=== PATIENT | female | born 1975 | race Caucasian/White ===

== ENCOUNTER 2018-12-24 23:07 | Emergency (ER) | payer OTHER, SELFPAY ==
[2018-12-24 23:13] VITALS: BP 142/53; PULSE 76; RESP 18; TEMP 37; O2SAT 100
[2018-12-24] MEDS: diphenhydrAMINE 25 MG CAP PO (23:37)
[2018-12-24] MEDS: predniSONE 20 MG TAB 60 MG PO (23:37)
[2018-12-24] MEDS: Doxycycline Hyclate 100 MG CAP PO (23:38)
--- NOTE | 2018-12-24 23:39 | ED.GENADUL_ITS ---
Discharge Plan Disposition Patient Disposition: HOME Condition: Good Discharge Details Chief Complaint: Allergic Clinical Impression: Trigeminal neuralgia, Esquivel's palsy Primary Care Provider: Mikel Hurd ED Provider: Sung Boston Home Meds and New Rx's Prescriptions: New prednisone 50 MG tablet 50 mg PO DAILY Qty: 5 RF: 0 doxycycline hyclate 100 mg capsule 100 mg PO BID 28 Days Qty: 56 RF: 0 epinephrine 0.3 mg/0.3 mL auto-injector 0.3 mg IM ONCE Qty: 2 RF: 0 No Action desonide 0.05 % cream 1 applic TP BID PRN (Reason: eczema) Qty: 30 RF: 1 albuterol sulfate 90 mcg/actuation HFA aerosol inhaler 2 puff Inhalation QID PRN (Reason: bronchospasm) Qty: 18 RF: 11 Daily Gummies 200 mcg tablet,chewable See Patient Comments PO DAILY RF: 0 cetirizine 10 mg tablet 10 mg PO Q12H 30 Days Qty: 60 RF: 5 ranitidine HCl 150 mg capsule 150 mg PO BID Qty: 60 RF: 5 ibuprofen 600 MG tablet 600 mg PO TID Qty: 60 RF: 0 levonorgestrel-ethinyl estrad [Neida 28] 1 EACH tablet 1 tab-cap PO DAILY Qty: 3 RF: 3 naproxen sodium [Aleve] 220 MG capsule 220 mg PO PRN PRNRF: 0 Discharge Instructions Instructions: Esquivel Palsy (ED) Additional Instructions: Clinically it appears that you have Esquivel's palsy. Please take the steroid and antibiotic as directed until completion. Please take the Benadryl as needed. Please follow-up closely with your primary care provider. If you notice any worsening of your symptoms, or any new symptoms such as vomiting, diarrhea, fever, chills, shortness of breath, chest pain, numbness, weakness, or fainting , please return immediately to the emergency department for reevaluation. Please follow up with your primary care provider as soon as possible for reassessment and reevaluation. As always, it was a pleasure participating in your medical care today. Referrals: Mikel Hurd [Primary Care Provider] - Medical Decision Making This is a 43-year-old female who presents today for evaluation of what she describes as swelling in the right side of her face, in conjunction with mild numbness and tingling over her right cheek. She states that it is been present for the last few hours. Exam demonstrates no significant swelling whatsoever, no signs of angioedema. She does have subjective decrease in sensation over the right cheek, however she demonstrates normal smile, no significant facial droop, no other abnormality. No evidence of lesions, ulcers, or shingles. No clinical evidence of meningitis or encephalitis. Signs and symptoms at this time appear notably inconsistent with anaphylaxis, and there is certainly more concerning for mild early Esquivel's palsy or trigeminal neuralgia. I did review with the patient any recent tick bites or upper respiratory infections, and the patient and her admit to both. Roughly 1 week ago she was bitten by a tick on her right buttock. No rashes present. She also had a notable upper respiratory infection 48 hours ago. Exam demonstrates no other significant abnormalities. I am concerned that with a recent tick bite this may certainly be a component of her Esquivel's palsy or trigeminal neuralgia. This patient is notably concerned that she is having allergic reaction, with her history of other allergic reactions and her subjective swelling, I do feel that steroids and continued Benadryl at home is certainly reasonable this will also help with any significant Esquivel's palsy. We will give doxycycline for what I suspect to be potential Lyme oriented cause of her symptoms. They did discuss antivirals, but with no lesions, no signs of shingles, no recent cold sores or herpes, feel that we can hold off on this as she does have a clinical history otherwise suggestive of the doxycycline treatment. Patient agrees and would like to hold off on any antiviral medication at this time. She will be following up closely with her primary care provider. We discussed the importance of medication adherence, return for worsening of her symptoms, and the importance of close follow-up. Of note clinically the patient shows no neurologic deficits no signs or symptoms clinically evident of stroke at this time. I have extensively reviewed the treatment plan and discharge instructions with the patient and their family. I have addressed all patient concerns at this time. The patient and family was made aware of what symptoms to monitor for that would warrant a return to the emergency department. Discussed the plan with the patient and family, they demonstrate verbal understanding and agreement with our assessment and plan at this time. HPI General Date/Time Provider Initiated Documentation: 12/24/18 23:08 . HPI Narrative: This is a 43-year-old female with past medical history of multiple allergies, but no history of anaphylactic allergy, presents today with complaint of right lip and cheek numbness and swelling. Patient states that it is been present for the last 2 to 3 hours. She denies any history of swelling with her other allergic reactions. She denies any new foods, detergents, exposures, or other abnormalities. She denies any significant shortness of breath, vomiting, diarrhea, fever, chills, or other complaints. She has no other modifying factors at this time. She is not on any antibiotics currently, she does take a daily Zyrtec. She has not taken any Benadryl today. Of note on review she does state that she was bitten by a tick a week ago, and also complains of a mild URI-like symptoms at both she and her endured roughly 24 to 48 hours ago Related Data Home Medications Medication Instructions Recorded Confirmed ibuprofen 600 mg PO TID #60 tab-cap 09/09/14 11/12/18 naproxen sodium [Aleve] 220 mg PO PRN PRN 01/15/17 11/12/18 levonorgestrel-ethinyl estrad 1 tab-cap PO DAILY #3 pack 01/20/18 11/12/18 [[place]-28 Tablet] albuterol sulfate HFA 90 2 puff INHALATION QID PRN #18 gm 09/17/18 11/12/18 mcg/actuation aerosol inhaler desonide 0.05 % topical cream 1 applic TP BID PRN #30 gm 09/17/18 11/12/18 cetirizine 10 mg tablet 10 mg PO Q12H 30 Days #60 tab 11/12/18 11/12/18 multivitamin with minerals-folic See Rx Instructions PO DAILY tab 11/12/18 11/12/18 acid 200 mcg chewable tablet ranitidine 150 mg capsule 150 mg PO BID #60 cap 11/12/18 11/12/18 doxycycline hyclate 100 mg PO BID 28 Days #56 cap 12/24/18 epinephrine 0.3 mg IM ONCE #2 each 12/24/18 prednisone 50 mg PO DAILY #5 tab 12/24/18 Previous Rx's Medication Instructions Recorded levonorgestrel-ethinyl estrad 1 tab-cap PO DAILY #3 pack 01/20/18 [[place]-28 Tablet] albuterol sulfate HFA 90 2 puff INHALATION QID PRN #18 gm 09/17/18 mcg/actuation aerosol inhaler desonide 0.05 % topical cream 1 applic TP BID PRN #30 gm 09/17/18 cetirizine 10 mg tablet 10 mg PO Q12H 30 Days #60 tab 11/12/18 ranitidine 150 mg capsule 150 mg PO BID #60 cap 11/12/18 doxycycline hyclate 100 mg PO BID 28 Days #56 cap 12/24/18 epinephrine 0.3 mg IM ONCE #2 each 12/24/18 prednisone 50 mg PO DAILY #5 tab 12/24/18 Allergies Allergy/AdvReac Type Severity Reaction Status Date / Time Penicillins Allergy Intermediate RASH Verified 11/12/18 08:37 Sulfa (Sulfonamide Allergy Intermediate RASH Verified 11/12/18 08:37 Antibiotics) General Stated Complaint: Allergic ROSEY: 3 Review of Systems Review of Systems All systems reviewed & are unremarkable except as noted in HPI and below PFSH Family History Mother Essential hypertension Hyperlipidemia Adopted Father Essential hypertension Hyperlipidemia Sister Gestational diabetes mellitus Grandfather No problems noted. Grandmother Personal history of malignant neoplasm Son No problems noted. Social History Smoking/Tobacco Use Status: Never Alcohol Intake: never Drug use: Never Substance use type: does not use Do you feel safe at home: Yes Do you feel safe in your relationship?: Yes Exam Narrative Exam Narrative: 1.Const: Well-nourished, Well-developed, appearing stated age 2.Eyes: PERRL, no conjunctival injection, and symmetrical lids. 3.ENT: Atraumatic external nose and ears. Moist MM. Neck: Symmetric, trachea midline, No thyromegaly. No evidence of angioedema, no significant swelling on the side of her face. No facial droop 4.CVS: +S1/S2, No murmurs or gallops. Peripheral pulses 2+ and equal in all extremities. Brisk capillary refill in all extremities. 5.RESP: Unlabored respiratory effort. Clear to auscultation bilaterally. No wheezes rales or rhonchi 6.GI: Soft, Nontender/Nondistended, No hepatosplenomegaly. No guarding or rebound. 7.MSK: Normocephalic/Atraumatic, Extremities w/o deformity or ttp No cyanosis or clubbing, Normal movement of all extremities 8.Skin: Warm, Dry. No rashes or lesions. 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 Sensation grossly intact, no focal neurolog ic deficits. All 6 cardinal planes of vision are fully intact. No evidence of rotatory or vertical nystagmus. The patient demonstrated a normal [id number], good dexterity. There was no evidence of dysdiadochokinesia. Patient was able to ambulate without difficulty. There was no wide-based gait. Romberg, and kpme-wr-lwno are both normal on testing. Sensation was intact bilaterally as well as muscle strength bilaterally for all extremities. Patient was able to verbalize butter cup with no slurring, or miss pronunciation. 10.Psych: (AAO) x3. Appropriate mood and affect Course Vital Signs Temperature 37.0 C 12/24/18 23:13 Pulse 76 12/24/18 23:13 Respiratory Rate 18 12/24/18 23:13 Blood Pressure 142/53 H 12/24/18 23:13 Pulse Oximetry 100 12/24/18 23:13 Temperature 37.0 C 12/24/18 23:13 Pulse 76 12/24/18 23:13 Respiratory Rate 18 12/24/18 23:13 Respiratory Effort Non-Labored 12/24/18 23:21 Respiratory Pattern Normal 12/24/18 23:21 Blood Pressure 142/53 H 12/24/18 23:13 Blood Pressure Position Sitting 12/24/18 23:13 Pulse Oximetry 100 12/24/18 23:13 Oxygen Delivery Method Room Air 12/24/18 23:13 Oxygen Flow Rate 0 12/24/18 23:13
[2018-12-25 00:09] VITALS: BP 142/53; PULSE 76; RESP 18; O2SAT 100
== END 2018-12-25 00:09 | disposition home or self-care (01) ==
PROVIDERS: Emergency Provider Student in an Organized Health Care Education/Training Program; PCP Family Medicine
DX: G50.0 Trigeminal neuralgia (principal); G51.0 Bell's palsy
CPT/HCPCS: 99283; J7512

== ENCOUNTER 2019-01-01 08:10 | Outpatient (CLI) | payer OTHER, SELFPAY ==
[2019-01-01 09:28] LABS: Abs Immature Grans 0.02 k/cumm (0.0-0.09); Absolute Basophil Count 0.02 k/cumm (0.0-0.2); Absolute Eosinophil Count 0.28 k/cumm (0.0-0.7); Absolute Lymphocyte Count 2.16 k/cumm (1.2-3.4); Absolute Monocyte Count 0.34 k/cumm (0.11-0.7); Absolute Neutrophil Count 4.85 k/cumm (1.2-6.7); Basophils % 0.3; Eosinophils % 3.7; HCT 43.7 % (36.0-46.0); HGB 14.4 g/dL (12.0-15.5); Immature Grans % 0.3; Lymphocytes % 28.2; Mean Corpuscular Hemoglobin 30.5 pg (27.0-33.0); Mean Corpuscular Volume 92.6 fL (80-95); Mean Platelet Volume 9.9 fL (8.0-11.0); Monocytes % 4.4; Neutrophils % 63.1; Platelet Count 309 x1000/uL (130-400); RBC 4.72 m/cumm (4.00-5.20); RBC Distribution Width 13.2 % (11.7-14.6); White Blood Cell Count 7.67 k/cumm (4.4-10.8)
[2019-01-01 10:01] LABS: ALT 20 U/L (12-78); AST 13 U/L (15-37); Albumin 3.6 g/dL (3.4-5.0); Alkaline Phosphatase 57 U/L (46-116); Anion Gap 7.2 mmol/L (3-11); BUN 17 mg/dL (7-18); Bilirubin, Total 0.8 mg/dL (0.2-1.0); C-Reactive Protein 0.32 mg/dL (0.0-0.3); CO2 28.8 mmol/L (21.0-32.0); CREATININE 0.79 mg/dL (0.55-1.02); Calcium 8.9 mg/dL (8.5-10.1); Chloride 103 mmol/L (98-107); Glucose 86 mg/dL (70-100); Potassium 4.1 mmol/L (3.5-5.1); Sodium 139 mmol/L (136-145); TSH (W/Ref FT4) 3.68 uIU/mL (0.358-3.74); Total Protein 6.9 g/dL (6.4-8.2)
[2019-01-02 12:12] LABS: Lyme Ab w Rflx to Lyme Confirm Negative
== END 2019-01-01 08:30 ==
PROVIDERS: PCP Family Medicine; Visit Provider Family Medicine
DX: L50.8 Other urticaria (principal); G51.0 Bell's palsy
CPT/HCPCS: 36415; 80053; 84443; 85025; 86140; 86618

== ENCOUNTER 2019-02-06 16:26 | Outpatient (REF) | payer OTHER, SELFPAY ==
--- NOTE | 2019-02-06 15:50 | PAPFT_PTH ---
PATIENT: Hattie Espinoza LOC: [facility] U#:[id number] AGE/SX: 43/F ROOM: RE02/06/[address]: RORO Brady : 1975 BED: DIS: 02/06/2019 SPEC #: [id number] RECD: 02/06/19 17:12 STATUS: MARGUERITE REChetan #: [id number] SANIA: 02/06/19 15:[address]: Heather Funes DEPT: [facility] Cytology RECD BY: Aline Yates ENTERED: 02/06/19 17:12 SP TYPE: PAPFT OTHR DR: Mikel Hurd MD Tissues: 1 - CX/ENDOCX FOR PAP SMEARS Procedures: PAP THIN PREP/UVM Screening HPV DNA PROBE Comments: [id number]
== END 2019-02-06 16:46 ==
LOC: LBN 16:26
PROVIDERS: PCP Family Medicine; Visit Provider Nurse Practitioner Family
DX: Z12.4 Encounter for screening for malignant neoplasm of cervix (principal); Z11.51 Encounter for screening for human papillomavirus (HPV)
CPT/HCPCS: 88142; 87624

== ENCOUNTER 2019-05-11 01:16 | Outpatient (CLI) | payer OTHER, SELFPAY ==
--- NOTE | 2019-05-11 15:33 | DI.MAMMO_ITS ---
EXAM: MAMMO SCREENING CLINICAL HISTORY: screening Z12.31 TECHNIQUE: Mammograms were interpreted according to the usual protocol including computer analysis w [employer] CAD system, tomosynthesis and C-view imaging. COMPARISON: [id number] FINDINGS: The breasts are composed of scattered areas of fibroglandular densities, breast density category B. There are no suspicious masses or suspicious microcalcifications. There has been no significant newell e when compared with prior images. IMPRESSION: Category 1, negative mammogram. Routine yearly screening is recommended. BI-RADS Cat 1 - Negative Breast Density - Category B - Scattered areas of fibroglandular density
== END 2019-05-11 01:36 ==
PROVIDERS: PCP Family Medicine; Visit Provider Nurse Practitioner Family
DX: Z12.31 Encounter for screening mammogram for malignant neoplasm of breast (principal)
CPT/HCPCS: 77063; 77067

== ENCOUNTER 2020-02-16 14:49 | Outpatient (REF) | payer OTHER, SELFPAY ==
--- NOTE | 2020-02-16 14:30 | PAPFT_PTH ---
PATIENT: Hattie Espinoza LOC: [facility] U#:[id number] AGE/SX: 44/F ROOM: RE02/16/[address]: RORO Brady : 1975 BED: DIS: 02/16/2020 SPEC #: [id number] RECD: 02/16/20 18:08 STATUS: MARGUERITE REQ #: [id number] SANIA: 02/16/20 14:[address]: Heather Funes DEPT: [facility] Cytology RECD BY: Aline Yates ENTERED: 02/16/20 18:09 SP TYPE: PAPFT OTHR DR: Mikel Hurd MD Tissues: 1 - CX/ENDOCX FOR PAP SMEARS Procedures: PAP THIN PREP/UVM Screening HPV DNA PROBE Comments: [id number]
== END 2020-02-16 15:09 ==
LOC: LBN 14:49
PROVIDERS: PCP Family Medicine; Visit Provider Nurse Practitioner Family
DX: Z11.51 Encounter for screening for human papillomavirus (HPV) (principal)
CPT/HCPCS: 88142; 87624

== ENCOUNTER 2020-05-13 03:14 | Outpatient (CLI) | payer OTHER, SELFPAY ==
--- NOTE | 2020-05-13 15:30 | DI.MAMMO_ITS ---
EXAM: MAMMO SCREENING CLINICAL HISTORY: screening TECHNIQUE: Mammograms were interpreted according to the usual protocol including computer analysis w [employer] CAD system, tomosynthesis and C-view imaging. COMPARISON: 2014 through 2018 FINDINGS: The breasts are composed of scattered fibroglandular densities, Breast Density category B. No suspicious masses or suspicious microcalcifications are seen. No skin thickening or abnormal axillary lymph nodes are seen. There has been no significant change from prior exams. IMPRESSION: BI-RADS Category 1, Negative mammogram Yearly screening mammography is recommended. Breast Density - Category B, scattered fibroglandular densities. A negative radiographic report should not delay biopsy if a dominant or clinically suspicious mass is present. Up to ten percent of cancers are not identified on mammography. A negative report may reinforce clinical impression. Adenosis and dense breasts may obscure an underlying neoplasm. False positive reports average 6 to 10%. Patient will receive a letter notifying them of these results.
== END 2020-05-13 03:34 ==
PROVIDERS: PCP Family Medicine; Visit Provider Nurse Practitioner Family
DX: Z12.31 Encounter for screening mammogram for malignant neoplasm of breast (principal)
CPT/HCPCS: 77063; 77067

== ENCOUNTER 2021-02-24 16:26 | Outpatient (REF) | payer OTHER, SELFPAY ==
--- NOTE | 2021-02-24 15:45 | PAPFT_PTH ---
PATIENT: Hattie Espinoza LOC: [facility] U#:[id number] AGE/SX: 46/F ROOM: RE02/24/[address]: RORO Brady : 1975 BED: DIS: 02/24/2021 SPEC #: [id number] RECD: 02/24/21 17:01 STATUS: YAYOReyna REChetan #: [id number] SANIA: 02/24/21 15:[address]: Heather Funes DEPT: [facility] Cytology RECD BY: Cara Mcelroy ENTERED: 02/24/21 17:01 SP TYPE: PAPFT OTHR DR: Danny Nagy, [place] Tissues: 1 - CX/ENDOCX FOR PAP SMEARS Procedures: PAP THIN PREP/UVM Screening HPV DNA PROBE Comments: [id number]
== END 2021-02-24 16:27 | disposition home or self-care (01) ==
LOC: LBN 16:26
PROVIDERS: PCP Nurse Practitioner Family; Visit Provider Nurse Practitioner Family
DX: Z12.4 Encounter for screening for malignant neoplasm of cervix (principal); Z11.59 Encounter for screening for other viral diseases; Z87.410 Personal history of cervical dysplasia
CPT/HCPCS: 88142; 87624

== ENCOUNTER 2021-08-14 01:55 | Outpatient (CLI) | payer OTHER, SELFPAY ==
--- NOTE | 2021-08-14 08:15 | DI.MAMMO_ITS ---
Exam(s) MAMMO SCREENING EXAM: MAMMO SCREENING CLINICAL HISTORY: screening,z12.39 TECHNIQUE: Bilateral full field digital CC and MLO mammographic images were obtained with 3D tomosyn thesis and utilizing computer aided detection (CAD). COMPARISON: Available for comparison. FINDINGS: Masses/Architectural Distortion: None seen. Microcalcifications: No suspicious pleomorphic-type are seen. Skin Thickening/Nipple Retraction: None. IMPRESSION: 1. No significant interval change with no specific features of malignancy noted. 2. Unless there is more urgent need, screening mammography is recommended, as per [employer] guidelines. BI-RADS Category 1 - Negative Breast Density - Category B - Scattered areas of fibroglandular density Breast density category C or D implies that the patient has dense breast tissue. Dense breast tissue is very common and is not abnormal but dense breast tissue can make it harder to find cancer on a ma mmogram. Also, dense breast tissue may increase their breast cancer risk. This information about the result of the mammogram report was provided to the patient to raise their awareness. Use this report when you speak with the patient about their risks for breast cancer, which includes their family hist ory. At that time, you may recommend for more screening tests (Ultrasound or MRI) as they might be us eful based on their risk. A negative radiographic report should not delay biopsy if a dominant or clinically suspicious mass is present. Up to ten percent of cancers are not identified on mammography. A negative report may reinforce clinical impression. Adenosis and dense breasts may obscure an underlying neoplasm. False positive reports average 6 to 10%. Patient will receive a letter notifying them of these results.
== END 2021-08-14 02:15 ==
PROVIDERS: PCP Nurse Practitioner Family; Visit Provider Nurse Practitioner Family
DX: Z12.31 Encounter for screening mammogram for malignant neoplasm of breast (principal)
CPT/HCPCS: 77063; 77067

== ENCOUNTER 2021-10-13 03:38 | Outpatient (CLI) | payer OTHER, SELFPAY ==
[2021-10-13 08:12] LABS: Hemoglobin A1C 5.8 % (<5.7)
[2021-10-13 08:47] LABS: Calculated LDL 132 mg/dL (<100); Cholesterol 194 mg/dL (<200); HDL Cholesterol 49 mg/dL (40-60); TSH 6.87 uIU/mL (0.36-3.74); Triglyceride 65 mg/dL (<150)
== END 2021-10-13 03:39 | disposition home or self-care (01) ==
LOC: LBO 03:38
PROVIDERS: PCP Nurse Practitioner Family; Visit Provider Nurse Practitioner Family
DX: Z13.220 Encounter for screening for lipoid disorders (principal); Z13.1 Encounter for screening for diabetes mellitus; Z13.29 Encounter for screening for other suspected endocrine disorder
CPT/HCPCS: 36415; 80061; 83036; 84443

== ENCOUNTER 2022-04-26 14:10 | Outpatient (REF) | payer OTHER, SELFPAY ==
--- NOTE | 2022-04-26 13:40 | PAPFT_PTH ---
PATIENT: Hattie Espinoza LOC: [facility] U#:[id number] AGE/SX: 47/F ROOM: RE04/26/[address]: Bharti Leung MD : 1975 BED: DIS: 04/26/2022 SPEC #: [id number] RECD: 04/26/22 17:31 STATUS: YAYOReyna REQ #: [id number] SANIA: 04/26/22 13:[address]: Bharti Leung DEPT: [facility] Cytology RECD BY: Aline Yates ENTERED: 04/26/22 17:31 SP TYPE: PAPFT OT DR: Danny Nagy, [place] Tissues: 1 - CX/ENDOCX FOR PAP SMEARS Procedures: PAP THIN PREP/UVM Screening HPV DNA PROBE Comments: [id number]
== END 2022-04-26 14:11 | disposition home or self-care (01) ==
LOC: LBN 14:10
PROVIDERS: PCP Nurse Practitioner Family; Visit Provider Obstetrics & Gynecology
DX: Z12.4 Encounter for screening for malignant neoplasm of cervix (principal); Z11.51 Encounter for screening for human papillomavirus (HPV)
CPT/HCPCS: 88142; 87624

== ENCOUNTER → 2023-04-15 18:55 | Outpatient (CLI) | payer OTHER, SELFPAY ==
--- NOTE | 2023-04-15 | DI.RAD_ITS ---
Exam(s) XR FOOT LT COMPLETE EXAM: XR FOOT LT COMPLETE CLINICAL HISTORY: PAIN IN LT FOOT, M79.672. TECHNIQUE: 2D digital imaging was performed. COMPARISON: No exams were available for comparison FINDINGS: 3 views No evidence of acute fracture nor diastasis of the Lisfranc joint. Bone density normal. No osseous lesions. No radiopaque foreign body. IMPRESSION: No acute osseous findings in the foot. DATA REPOSITORY: RADIATION DOSE DELIVERED:
== END ==
PROVIDERS: PCP Nurse Practitioner Family; Visit Provider Nurse Practitioner Family
DX: M79.672 Pain in left foot (principal)
CPT/HCPCS: 73630

== ENCOUNTER 2023-09-25 12:42 | Outpatient (REF) | payer OTHER, SELFPAY ==
--- NOTE | 2023-09-25 12:00 | PAPFT_PTH ---
PATIENT: Hattie Espinoza LOC: [facility] U#:[id number] AGE/SX: 48/F ROOM: RE09/25/[address]: Bharti Leung MD : 1975 BED: DIS: 09/25/2023 SPEC #: [id number] RECD: 09/25/23 18:31 STATUS: MARGUERITE REChetan #: [id number] SANIA: 09/25/23 12:[address]: Bharti Leung DEPT: [facility] Cytology RECD BY: Aline Yates ENTERED: 09/25/23 18:31 SP TYPE: PAPFT LUIS ALBERTO DR: Danny Nagy, [place] Tissues: 1 - CX/ENDOCX FOR PAP SMEARS Procedures: PAP THIN PREP/UVM Screening HPV DNA PROBE Comments: [id number]
== END 2023-09-25 12:43 | disposition home or self-care (01) ==
LOC: LBN 12:42
PROVIDERS: PCP Nurse Practitioner Family; Visit Provider Obstetrics & Gynecology
DX: Z12.4 Encounter for screening for malignant neoplasm of cervix (principal); R87.610 Atypical squamous cells of undetermined significance on cytologic smear of cervix (ASC-US); Z11.51 Encounter for screening for human papillomavirus (HPV)
CPT/HCPCS: 88142; 87624

== ENCOUNTER → 2023-10-04 01:25 | Outpatient (CLI) | payer OTHER, SELFPAY ==
--- NOTE | 2023-10-04 15:15 | DI.MAMMO_ITS ---
Exam(s) MAMMO SCREENING EXAM: MAMMO SCREENING CLINICAL HISTORY: screening TECHNIQUE: Mammograms were interpreted according to the usual protocol including computer analysis w [employer] CAD system, tomosynthesis and C-view imaging. COMPARISON: 2014 through 2021 FINDINGS: The breasts are composed of mainly fatty density , Breast Density category A. No suspicious masses or suspicious microcalcifications are seen. No skin thickening or abnormal axillary lymph nodes are seen. There has been no significant change from prior exams. IMPRESSION: BI-RADS Category 1, Negative mammogram Yearly screening mammography is recommended. Breast Density - Category A, fatty density. A negative radiographic report should not delay biopsy if a dominant or clinically suspicious mass is present. Up to ten percent of cancers are not identified on mammography. A negative report may reinforce clinical impression. Adenosis and dense breasts may obscure an underlying neoplasm. False positive reports average 6 to 10%. Patient will receive a letter notifying them of these results.
== END ==
PROVIDERS: PCP Nurse Practitioner Family; Visit Provider Obstetrics & Gynecology
DX: Z12.31 Encounter for screening mammogram for malignant neoplasm of breast (principal)
CPT/HCPCS: 77063; 77067

== ENCOUNTER 2023-11-11 02:52 | Emergency (ER) | payer OTHER, SELFPAY ==
[2023-11-11 02:56] VITALS: BP 174/83; PULSE 79; RESP 18; TEMP 36.4; O2SAT 98
--- NOTE | 2023-11-11 03:00 | DI.CT_ITS ---
Exam(s) CT ABDOMEN PELVIS WO EXAM: CT ABDOMEN PELVIS WO CLINICAL HISTORY: suprapubic pain, hematuria, concern for stone. TECHNIQUE: Imaging Protocol: Axial computed tomography images with coronal and sagittal reformatted images were created and reviewed. COMPARISON: No exams were available for comparison FINDINGS: ABDOMEN: Lung Bases: Normal where visualized. Liver: Normal density. There is a 1.2 cm area of decreased attenuation in the periphery of the right lobe of the liver (series 5, image 65). This is indeterminate on this noncontrast examination. Gallbladder and biliary tract: No radiodense calculus or biliary ductal dilation. Pancreas: Normal density, no abnormal calcifications or inflammatory process. Spleen: Normal. Kidneys: Normal size, contour and axis.No radiodense stones or obstructive uropathy. No masses seen. Adrenal glands: No mass is seen. Lymph nodes: Within normal limits. Abdominal Aorta: Abdominal portion non-dilated. PELVIS: Bladder:The urinary bladder is incompletely distended but grossly unremarkable. Bowel: No obstruction or bowel wall thickening. No evidence of appendicitis. Peritoneal cavity: There is a trace amount of free fluid in the cul-de-sac which is likely physiologi c. No free air. Reproductive organs: There is a 3 cm left ovarian cyst. (Series 5, image 582). Bones: Within normal limits. Soft Tissues: There is a small fat containing umbilical hernia. IMPRESSION: 1. Unremarkable CT scan of the abdomen and pelvis. 2. No evidence of nephrolithiasis or hydronephrosis. 3. 3 cm left ovarian cyst. 4. 1.2 cm area of decreased attenuation in the periphery of the right lobe of the liver. This is ind eterminate on this noncontrast examination. Follow-up with postcontrast CT scan of the abdomen or MR I of the abdomen without and with contrast is recommended. Unexpected findings RADIATION DOSE DELIVERED: 998.93mGy.cm Total DLP DATA REPOSITORY: All CT scans at this facility are submitted to the National Radiology Data Registry (NRDR) Dose Index Registry (DIR) with the [employer] (A[employer]). RADIATION OPTIMIZATION: All CT scans at this facility use at least one of these dose optimization te chniques: automated exposure control; mA and/or kV adjustment per patient size (includes targeted exa ms where dose is matched to clinical indication); or iterative reconstruction.
[2023-11-11 03:04] LABS: Bilirubin Small (Negative); Blood Large (Negative); Clarity Cloudy (Clear); Glucose Negative (Negative); Ketones Trace mg/dL (Negative); Leukocyte Esterase Small (Negative); Nitrite Positive (Negative); Specific Gravity >= 1.030 (1.005-1.025); pH 5.5 (5-8)
[2023-11-11 03:08] VITALS: BP 171/83; PULSE 81; RESP 22; TEMP 36.4; O2SAT 98
[2023-11-11] MEDS: Tamsulosin 0.4 MG CAPCR PO (03:10)
[2023-11-11] MEDS: Lactated Ringers 1,000 ML 1000 ML IV (03:11)
[2023-11-11 03:12] LABS: C & S Indicated? Yes; RBC >50 HPF (0-2)
[2023-11-11] MEDS: Ondansetron 4 MG/2 ML VIAL IVP (03:12)
[2023-11-11] MEDS: Ketorolac 15 MG/ML VIAL IVP (03:12)
[2023-11-11] MEDS: ACETAMINOPHEN 1,000 MG/100 ML BTL 400 MG IVPB (03:12)
[2023-11-11 03:28] LABS: Abs Immature Grans 0.02 10^3/uL (0.0-0.06); Absolute Basophil Count 0.05 10^3/uL (0.0-0.2); Absolute Eosinophil Count 0.65 10^3/uL (0.0-0.7); Absolute Lymphocyte Count 2.77 10^3/uL (1.2-3.4); Absolute Neutrophil Count 4.53 10^3/uL (1.2-6.7); Basophils % 0.6; Eosinophils % 7.6; HCT 39.7 % (36.0-46.0); HGB 13.2 g/dL (11.2-15.7); Immature Grans % 0.2; Lymphocytes % 32.5; MCH 30.5 pg (27.0-33.0); MCHC 33.2 % (32.0-36.0); MCV 92 fL (80-95); MPV 9.5 fL (8.0-11.0); Monocytes % 5.9; Neutrophils % 53.2; Platelet Count 311 10^3/uL (130-400); RBC 4.33 10^6/uL (3.93-5.22); RDW 12.6 % (11.7-14.6); RDW-SD 42.6 fL; WBC 8.52 10^3/uL (4.4-10.8)
[2023-11-11 03:44] LABS: ALT 40 U/L (14-59); AST 24 U/L (15-37); Albumin 3.8 g/dL (3.4-5.0); Alkaline Phosphatase 99 U/L (46-116); Anion Gap 9.8 mmol/L (3-11); BUN 12 mg/dL (7-18); Bilirubin, Total 0.6 mg/dL (0.2-1.0); CO2 28.2 mmol/L (21.0-32.0); CREATININE 0.9 mg/dL (0.55-1.02); Calcium 8.6 mg/dL (8.5-10.1); Chloride 103 mmol/L (98-107); Estimated GFR 78.37 (mL/min/1.73m2); Glucose 104 mg/dL (74-106); Potassium 3.5 mmol/L (3.5-5.1); Sodium 141 mmol/L (136-145); Total Protein 7.3 g/dL (6.4-8.2)
--- NOTE | 2023-11-11 03:45 | W.ED.GENAD ---
Discharge Plan Disposition Patient Disposition: Home Condition: Good Discharge Details Clinical Impression: UTI (urinary tract infection) Primary Care Provider: Danny Nagy ED Provider: Sung Boston Home Meds and New Rx's Prescriptions: New levofloxacin 750 mg tablet 750 mg PO DAILY Qty: 5 0RF No Action nystatin-triamcinolone 100,000-0.1 unit/g-% cream 1 applic Topical BID PRN Rx Instructions: local application in thin layer twice a day on rash, until rash is gone levonorgestrel-ethinyl estrad [[place]sco 28] 0.15-0.03 mg tablet 1 tab PO DAILY Qty: 84 4RF albuterol sulfate 90 mcg/actuation HFA aerosol inhaler 2 puff Inhalation QID PRN (Reason: bronchospasm) Qty: 18 11RF multivit with min-folic acid [Daily Gummies] 200 mcg tablet,chewable See Rx Instructions PO DAILY Patient Comments: 2 tab PO ; DAILY Rx Instructions: 2 tab PO ; DAILY fluocinonide 0.1 % cream 1 applic topical BID-QID PRN (Reason: rash) Qty: 120 2RF desonide 0.05 % cream 1 applic TP BID PRN (Reason: eczema) Qty: 60 1RF valacyclovir 1 gram tablet 1,000 mg PO TID Qty: 21 0RF Rx Instructions: Take 1 tablet by mouth three times a day for 7 days Discharge Instructions Instructions: Urinary Tract Infection in Women (ED) Additional Instructions: At this time you have a urinary tract infection, please take the antibiotic levofloxacin as directed. As we discussed together this can cause tendon irritation. Please avoid any aggressive or intense workouts there is significant ligamentous straining while on the antibiotic. If you do notice any pain in your ligaments please stop the antibiotic and follow-up immediately. Please drink plenty of fluids and stay well-hydrated. Please take cranberry concentrate to help with resolution of your symptoms. If you notice any worsening of your symptoms, or any new symptoms such as vomiting, diarrhea, fever, chills, shortness of breath, chest pain, numbness, weakness, or fainting , please return immediately to the emergency department for reevaluation. Please follow up with your primary care provider as soon as possible for reassessment and reevaluation. As always, it was a pleasure participating in your medical care today. Referrals: Danny Nagy NP [Primary Care Provider] - [facility] General Date/Time Provider Initiated Documentation: 11/11/23 02:53. HPI Narrative: 48-year-old female presents today for evaluation of urinary discomfort. Patient states that at around 8:30 PM she had sudden onset of urinary frequency and dysuria which she describes as sharp and stabbing the ureteral region. She had some associated nausea but no vomiting. No flank pain or tenderness. No diarrhea. No vaginal discharge. She has not taken any medications for the pain. Pain worsened throughout the night. It is constant in nature. Family history is positive for kidney stones for her son and mother. She denies personal history of kidney stone. No other complaints at this time. No fever or chills. No other modifying factors. Patient does state that she has had similar symptoms like this but not to this degree in the past, and they were secondary to urinary tract infection. Related Data Home Medications Medication Instructions Recorded Confirmed albuterol sulfate 90 mcg/actuation 2 puff inhalation QID PRN 09/17/18 11/11/23 aerosol inhaler bronchospasm #18 grams multivitamin with minerals-folic See Rx Instructions PO DAILY daily 11/12/18 11/11/23 acid 200 mcg chewable tablet (Daily Gummies) fluocinonide 0.1 % topical cream 1 applic topical BID-QID PRN rash 09/29/21 11/11/23 #120 grams desonide 0.05 % topical cream 1 applic topical BID PRN eczema 02/21/22 11/11/23 #60 grams nystatin-triamcinolone 100,000 1 applic topical BID PRN 04/26/22 11/11/23 unit/g-0.1 % topical cream valacyclovir 1 gram tablet 1,000 mg PO TID #21 tabs 06/24/23 11/11/23 levonorgestrel 0.15 mg-ethinyl 1 tab PO DAILY #84 tabs 09/25/23 11/11/23 estradiol 0.03 mg tablet (Osco 28) levofloxacin 750 mg tablet 750 mg PO DAILY #5 tabs 11/11/23 Previous Rx's Medication Instructions Recorded albuterol sulfate 90 mcg/actuation 2 puff inhalation QID PRN 09/17/18 aerosol inhaler bronchospasm #18 grams fluocinonide 0.1 % topical cream 1 applic topical BID-QID PRN rash 09/29/21 #120 grams desonide 0.05 % topical cream 1 applic topical BID PRN eczema 02/21/22 #60 grams valacyclovir 1 gram tablet 1,000 mg PO TID #21 tabs 06/24/23 levonorgestrel 0.15 mg-ethinyl 1 tab PO DAILY #84 tabs 09/25/23 estradiol 0.03 mg tablet (Neida 28) levofloxacin 750 mg tablet 750 mg PO DAILY #5 tabs 11/11/23 Allergies Allergy/AdvReac Type Severity Reaction Status Date / Time Penicillins Allergy Intermediate RASH Verified 09/25/23 11:01 Sulfa (Sulfonamide Allergy Intermediate RASH Verified 09/25/23 11:01 Antibiotics) heat sweat Allergy Intermediate hives Uncoded 09/25/23 11:01 General Stated Complaint: Urinary ROSEY: 3 Review of Systems All systems reviewed & are unremarkable except as noted in HPI and below Exam Narrative Exam Narrative: 1.Const: Well-nourished, Well-developed, appearing stated age 2.Eyes: PERRL, no conjunctival injection, and symmetrical lids. 3.ENT: Atraumatic external nose and ears. Moist MM. Neck: Symmetric, trachea midline, No thyromegaly. 4.CVS: +S1/S2, No murmurs or gallops. Peripheral pulses 2+ and equal in all extremities. Brisk capillary refill in all extremities. 5.RESP: Unlabored respiratory effort. Clear to auscultation bilaterally. No wheezes rales or rhonchi 6.GI: Soft, Nontender/Nondistended, No hepatosplenomegaly. No guarding or rebound. No flank or CVA tenderness 7.MSK: Normocephalic/Atraumatic, Extremities w/o deformity or ttp No cyanosis or clubbing, Normal movement of all extremities 8.Skin: Warm, Dry. No rashes or lesions. 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 Sensation grossly intact, no focal neurologic deficits. 10.Psych: (AAO) x3. Appropriate mood and affect Course Vital Signs Vital signs: Vital Signs Temperature 36.4 C 11/11/23 02:56 Pulse 79 11/11/23 02:56 Respiratory Rate 18 11/11/23 02:56 Blood Pressure 174/83 H 11/11/23 02:56 Pulse Oximetry 98 11/11/23 02:56 Temperature 36.4 C L 11/11/23 03:08 Temperature Source Temporal Artery Scan 11/11/23 03:08 Pulse 81 11/11/23 03:08 Respiratory Rate 22 11/11/23 03:08 Respiratory Effort Normal, Non-Labored 11/11/23 03:08 Blood Pressure 171/83 H 11/11/23 03:08 Blood Pressure Position Sitting 11/11/23 03:08 Pulse Oximetry 98 11/11/23 03:08 Oxygen Delivery Method Room Air 11/11/23 03:08 Oxygen Flow Rate 0 11/11/23 02:56 Pain Level 7 11/11/23 03:08 Lab/Test Results Lab/Test Results: 11/11/23 03:00 Urine - Reflex from Ua Urine Culture - Pending Laboratory Tests Range/Units 11/11/23 11/11/23 03:00 03:15 WBC (4.4-10.8) 10^3/uL 8.52 RBC (3.93-5.22) 10^6/uL 4.33 Hgb (11.2-15.7) g/dL 13.2 Hct (36.0-46.0) % 39.7 MCV (80-95) fL 92 MCH (27.0-33.0) pg 30.5 MCHC (32.0-36.0) % 33.2 RDW (11.7-14.6) % 12.6 Plt Count (130-400) 10^3/uL 311 MPV (8.0-11.0) fL 9.5 Immature Gran % 0.2 Neutrophils % 53.2 Lymphocytes % 32.5 Monocytes % 5.9 Eosinophils % 7.6 Basophils % 0.6 Nucleated RBC % (0.0-0.3) % 0.0 Absolute Neutrophils (1.2-6.7) 10^3/uL 4.53 Absolute Lymphocytes (1.2-3.4) 10^3/uL 2.77 Absolute Monocytes (0.1-0.8) 10^3/uL 0.50 Absolute Eosinophils (0.0-0.7) 10^3/uL 0.65 Absolute Basophils (0.0-0.2) 10^3/uL 0.05 Urine Color (Yellow) Yellow Urine Clarity (Clear) Cloudy Urine pH (5-8) 5.5 Ur Specific [place] (1.005-1.025) >= 1.030 H Urine Protein (Neg-Trace) mg/dL >=300 H Urine Ketones (Negative) mg/dL Trace H Urine Blood (Negative) Large H Urine Nitrite (Negative) Positive H Urine Bilirubin (Negative) Small H Urine Urobilinogen (Up to 0.2) mg/dL 1.0 H Ur Leukocyte Esterase (Negative) Small H Urine RBC (0-2) HPF >50 H Urine WBC Not Applicable Ur Epithelial Cells Not Applicable Urine Crystals Not Applicable Urine Bacteria Not Applicable Urine Mucus Not Applicable Ur Culture Indicated? Yes Urine Glucose (Negative) mg/dL Negative Medical Decision Making 48-year-old female presents today for evaluation of urinary discomfort. Patient states that at around 8:30 PM she had sudden onset of urinary frequency and dysuria which she describes as sharp and stabbing the ureteral region. She had some associated nausea but no vomiting. No flank pain or tenderness. No diarrhea. No vaginal discharge. She has not taken any medications for the pain. Pain worsened throughout the night. It is constant in nature. Family history is positive for kidney stones for her son and mother. She denies personal history of kidney stone. No other complaints at this time. No fever or chills. No other modifying factors. Patient does state that she has had similar symptoms like this but not to this degree in the past, and they were secondary to urinary tract infection. Physical exam demonstrates well-appearing female who is in mild to moderate pain. No pain to McBurney's point, negative Aguilar sign. Symptoms are concerning for urinary tract infection and potential pyelonephritis, differential also includes urolithiasis with infection. Will get a CT scan to rule out stone, get a urinalysis treat the patient's pain with Toradol and Ofirmev, Flomax, monitor closely and reassess. 3:49 AM Laboratory workup shows no white count bandemia or left shift, electrolytes are all normal, urinalysis shows nitrates, leuk esterase, greater than 50 RBCs unable to see WBCs. Concern for hemorrhagic cystitis secondary to infection. Will give 750 mg of Levaquin. Pending CT scan results, however upon my review I do not see any evidence of stone. Notably thickened urinary bladder though. 4:24 AM Laboratory workup has returned normal, no white count bandemia or left shift. Patient remains afebrile. Patient feels much better after medication. CT scan shows no evidence of urolithiasis. She does have a left ovarian cyst which is only 3 cm. Symptoms appear inconsistent clinically with ovarian torsion or ectopic . With the patient's resolution of her pain, I do feel that treatment on an outpatient basis is reasonable. Patient does have penicillin allergies. She has utilized Cipro in the past for treatment. Will treat with levofloxacin due to the notable enhanced nature of the urinary tract infection this time. I had a long discussion with her about the risks and benefits of fluoroquinolones, including tendon damage. I discussed the importance of avoidance of aggressive exercising. Patient consents to treatment. Patient will be given a dose here, and then a prescription for home. Discussed red flags for which to return. I have extensively reviewed the treatment plan and discharge instructions with the patient. I have addressed all patient concerns at this time. The patient was made aware of what symptoms to monitor for that would warrant a return to the emergency department. Discussed the plan with the patient, they demonstrate verbal understanding and agreement with our assessment and plan at this time. The documentation in this chart was dictated using [employer] dictation software. Please excuse any dictation errors. FINDINGS: Lungs: Lung bases clear. Liver: Grossly unremarkable unenhanced liver. Gallbladder and bile ducts: Normal appearing gallbladder. No calcified gallstones. No biliary dilatation. Pancreas: Grossly unremarkable unenhanced pancreas. Spleen: Grossly unremarkable unenhanced spleen. Adrenal glands: Normal appearing adrenal glands. Kidneys and ureters: Grossly unremarkable unenhanced kidneys. No radiopaque renal calculi or hydronephrosis. Ureters partially obscured. No suspicious calcifications along the expected ureteral courses. Stomach and bowel: No oral contrast. Stomach largely decompressed. No small bowel dilatation to suggest obstruction. Normal-appearing colon. No evidence of diverticulitis or colitis. Appendix: Appendix partially obscured but normal in caliber and appearance through its visualized portion. Intraperitoneal space: Small amount of free fluid in the deep pelvis, nonspecific. No free air. Vasculature: Normal caliber abdominal aorta. Lymph nodes: No pathologically enlarged mesenteric, retroperitoneal, or pelvic sidewall lymph nodes. Urinary bladder: Urinary bladder partially collapsed but grossly unremarkable, as seen. Reproductive: Anteverted uterus, normal in size. Normal-sized right ovary. Left ovary partially obscured. 3.0 cm x 2.2 cm dominant left ovarian follicle, partially obscured by artifact and not well demonstrated. Bones/joints: No acute fracture seen among the bones of the abdomen or pelvis. Soft tissues: Small fat containing ventral hernia at the umbilicus. IMPRESSION: 1. 3.0 cm x 2.2 cm enlarged left ovarian follicle with fluid in the left adnexal region and cul-de-sac of John. 2. No radiopaque renal calculi, hydronephrosis, or proximal ureterectasis. Ureters partially obscured. No suspicious calcifications along the expected ureteral courses. Thank you for allowing us to participate in the care of your patient. Dictated and Authenticated by: Mario Nicolas MD 11/11/2023 4:18 AM Eastern Time ([place] & [place]) Quality:SDOH Health Related Social Needs: No Data to Display PFSH All Active Problems (Updated 11/11/23 @ 04:22 by Sung Boston DO) UTI (urinary tract infection) (Acute) Rectal bleeding (Acute) Benign paroxysmal positional vertigo (Acute) Heart murmur (Acute) normal echo 2001 Medical History Personal history of cervical dysplasia SHILPI 2/3 with LEEP in 2012 Normal yearly paps since Left lateral epicondylitis Eczema Herpes zoster (2019) Environmental allergies Asthma intermittent Cellulitis of leg (11/05/12) Chronic rhinitis (04/01/17) Closed fracture of lower leg Fibrocystic disease of breast (11/05/12) Hemorrhoid prolapse (04/18/17) Surgical History Status post LEEP (loop electrosurgical excision procedure) of cervix Cervical Procedure (11/12/12) LEEP; HGSIL Family History Mother Essential hypertension Hyperlipidemia Adopted Father Essential hypertension Hyperlipidemia Sister Gestational diabetes mellitus Grandfather , BLOOD CLOT IN HEART at age 67. No problems noted. Grandmother Personal history of malignant neoplasm BONE Son No problems noted. Social History Smoking/Tobacco Use Status: Never Second Hand Exposure: Yes Smoking risk assessment performed?: Yes Alcohol Intake: current Alcohol Intake frequency: holidays/special occasions only Alcohol type: hard liquor Drug use: Never Substance use type: does not use Household members: spouse Housing: house Communication Needs: None Do you need help understanding health information?: Never Pets and animals: No Sexually active: Yes Do you think of yourself as: straight/heterosexual Current gender identity: female What is your relationship status?: How often do you talk on the phone with friends or family?: twice per week How often do you get together with friends or relatives?: once per week Do you belong to any clubs or organized social groups?: no Panel score (0-1 are the most socially isolated patients): 2 What type of physical activity do you participate in: aerobic and weight lifting Sera/Tenriism: Advent Seatbelt use: always Helmet use: Yes Helmet use: always Drive intox or ride w/intox skidder driver: No Do you feel safe at home: Yes Do you feel safe in your relationship?: Yes History History 3 Para 1 Hx # Term Pregnancies 1 Multiple births Hx # Pregnancies Ectopic pregnancies AB induced Hx Number of Living Children 1 AB spontaneous 2 Past Pregnancies Del. Date GA/Weeks # Preg Succ Route Wgt Sex Labor Lgth Anesthesia Location [facility] Compl 05/28/95 38 No Yes vaginal 2834.[facility] Date[facility] 05/28/95 Last Updated by: Jo Baptiste Baby inpatient for 5 days for not eating well/ weight loss.
[2023-11-11] MEDS: levoFLOXacin 750 MG/150 ML BAG 100 MG IVPB (04:00)
--- NOTE | 2023-11-11 04:18 | DI.VRAD_ITS ---
PROCEDURE INFORMATION: Exam: CT Abdomen And Pelvis Without Contrast Exam date and time: 11/11/2023 3:10 AM Age: 48 years old Clinical indication: Abdominal pain; Patient HX: Suprapubic pain, hematuria, concern for stone TECHNIQUE: Imaging protocol: Computed tomography of the abdomen and pelvis without contrast. Radiation optimization: All CT scans at this facility use at least one of these dose optimization techniques: automated exposure control; mA and/or kV adjustment per patient size (includes targeted exams where dose is matched to clinical indication); or iterative reconstruction. COMPARISON: No relevant prior studies available. FINDINGS: Lungs: Lung bases clear. Liver: Grossly unremarkable unenhanced liver. Gallbladder and bile ducts: Normal appearing gallbladder. No calcified gallstones. No biliary dilatation. Pancreas: Grossly unremarkable unenhanced pancreas. Spleen: Grossly unremarkable unenhanced spleen. Adrenal glands: Normal appearing adrenal glands. Kidneys and ureters: Grossly unremarkable unenhanced kidneys. No radiopaque renal calculi or hydronephrosis. Ureters partially obscured. No suspicious calcifications along the expected ureteral courses. Stomach and bowel: No oral contrast. Stomach largely decompressed. No small bowel dilatation to suggest obstruction. Normal-appearing colon. No evidence of diverticulitis or colitis. Appendix: Appendix partially obscured but normal in caliber and appearance through its visualized portion. Intraperitoneal space: Small amount of free fluid in the deep pelvis, nonspecific. No free air. Vasculature: Normal caliber abdominal aorta. Lymph nodes: No pathologically enlarged mesenteric, retroperitoneal, or pelvic sidewall lymph nodes. Urinary bladder: Urinary bladder partially collapsed but grossly unremarkable, as seen. Reproductive: Anteverted uterus, normal in size. Normal-sized right ovary. Left ovary partially obscured. 3.0 cm x 2.2 cm dominant left ovarian follicle, partially obscured by artifact and not well demonstrated. Bones/joints: No acute fracture seen among the bones of the abdomen or pelvis. Soft tissues: Small fat containing ventral hernia at the umbilicus. IMPRESSION: 1. 3.0 cm x 2.2 cm enlarged left ovarian follicle with fluid in the left adnexal region and cul-de-sac of John. 2. No radiopaque renal calculi, hydronephrosis, or proximal ureterectasis. Ureters partially obscured. No suspicious calcifications along the expected ureteral courses. Dictated and Authenticated by: Mario Nicolas MD. Ordering:ELSA Almaraz MD
[2023-11-11 05:32] VITALS: BP 111/55; PULSE 63; RESP 15; TEMP 37; O2SAT 100
--- NOTE | 2023-11-11 16:20 | NUR.NOTE ---
patient called stating the pyridium she had on hand was for 3 years. Advised her that this medication was available for purchase OTC, known as AZO. Advised patient to stay hydrated and take abx as prescribed. Patient satisfied with information.
== END 2023-11-11 05:34 | disposition home or self-care (01) ==
PROVIDERS: Emergency Provider Student in an Organized Health Care Education/Training Program; PCP Nurse Practitioner Family
DX: N39.0 Urinary tract infection, site not specified (principal); R11.10 Vomiting, unspecified
CPT/HCPCS: 80053; 87077; 96365; 96366; 96367; 96375; 99284; 74176; 81003; 81015; 85025; 87086; 87186; J0131; J1885; J1956; J2405

== ENCOUNTER → 2023-11-27 03:12 | Outpatient (CLI) | payer OTHER, SELFPAY ==
--- NOTE | 2023-11-27 08:06 | DI.RAD_ITS ---
Exam(s) XR FOOT RT COMPLETE EXAM: XR FOOT RT COMPLETE CLINICAL HISTORY: Right foot pain,m79.671. TECHNIQUE: 2D digital imaging was performed of the right foot. Three images were obtained. AP, obl ique and lateral views were obtained. COMPARISON: No exams were available for comparison FINDINGS: BONES: No acute fracture is present. No bony destructive lesion is seen. JOINTS: No dislocation present. SOFT TISSUE: Normal. IMPRESSION: No acute abnormality. DATA REPOSITORY: RADIATION DOSE DELIVERED:
== END ==
PROVIDERS: PCP Nurse Practitioner Family; Visit Provider Podiatrist
DX: M79.671 Pain in right foot (principal)
CPT/HCPCS: 73630

== ENCOUNTER → 2023-12-27 03:08 | Outpatient (CLI) | payer OTHER, SELFPAY ==
--- NOTE | 2023-12-27 07:45 | DI.MRI_ITS ---
Exam(s) MR ABDOMEN WO/W EXAM: MR ABDOMEN WO/W CLINICAL HISTORY: Incidental finding on CT, LIVER LESION, K76.9 TECHNIQUE: Multiplanar multisequence MRI was performed with both pre and post contrast infused seque nces. Contrast injected sequences were performed following IV injection of 18 cc of Dotarem. COMPARISON: CT CT ABDOMEN PELVIS WO from 11/11/2023 FINDINGS: VISUALIZED LUNG BASES: No pleural effusions evident. There is no ascites evident. LIVER: There is a solitary subcapsular lesion in the right hepatic lobe which corresponds to the find ing on the recent noninfused CT scan. This is a well-defined slightly lobulated subcapsular T1 hypoi ntense and T2 bright lesion measuring 1.2 x 1.1 cm. This exhibits centripetal enhancement following contrast injection consistent with a benign cavernous hemangioma. There is another smaller similar appearing 0.7 cm lesion in the left hepatic lobe which also has appe arance of a benign hemangioma. Lower down in the medial aspect of the inferior right hepatic lobe there are 2 additional tiny T2 tara ght subcapsular lesions measuring 4 and 2 mm, also having similar benign appearance. BILIARY: There is no obvious gallbladder pathology. The CBD is not dilated. PANCREAS: There is no evidence of pancreatic mass nor dilatation of the pancreatic duct. SPLEEN: Spleen is not enlarged and there are no intrasplenic lesions.Splenic and portal veins are pat ent ADRENALS: There are no significant adrenal masses. KIDNEYS: No solid renal masses. No hydronephrosis.No cysts evident. ABDOMINAL AORTA: Not enlarged and there is no significant para-aortic adenopathy. ANTERIOR ABDOMINAL WALL/GI: There is no evidence of significant anterior abdominal wall hernia in the field of view of this study.Is no evidence of obvious bowel obstruction. OSSEOUS: There are no lytic osseous lesions in the field of view of this study. IMPRESSION: 1. The 1.2 x 1.1 cm subcapsular right hepatic lobe lesion described on the recent noninfused CT scan has signal characteristics and enhancement pattern consistent with a benign cavernous hemangioma. Ot her similar smaller benign findings are noted as described above, 1 in the left hepatic lobe and the other 2 located inferiorly subcapsular in the inferior aspect of the right hepatic lobe. There are n o malignant-appearing liver lesions. 2. No other significant MRI findings in the upper abdomen. DATA REPOSITORY:
[2023-12-27] MEDS: Gadoterate meglumine 20 ML VIAL IVP (14:47)
== END ==
PROVIDERS: PCP Nurse Practitioner Family; Visit Provider Nurse Practitioner Family
DX: K76.9 Liver disease, unspecified (principal)
CPT/HCPCS: 74183

== ENCOUNTER 2024-01-27 11:27 | Emergency (ER) | payer OTHER, SELFPAY ==
[2024-01-27 11:32] VITALS: BP 127/93; PULSE 80; RESP 20; TEMP 36.9; O2SAT 100
[2024-01-27] MEDS: Ketorolac 15 MG/ML VIAL IVP (12:02)
[2024-01-27 12:13] LABS: Abs Immature Grans 0.02 10^3/uL (0.0-0.06); Absolute Basophil Count 0.05 10^3/uL (0.0-0.2); Absolute Eosinophil Count 0.22 10^3/uL (0.0-0.7); Absolute Lymphocyte Count 1.51 10^3/uL (1.2-3.4); Absolute Monocyte Count 0.47 10^3/uL (0.1-0.8); Basophils % 0.7 %; Eosinophils % 3.1 %; HCT 42.6 % (36.0-46.0); HGB 14.2 g/dL (11.2-15.7); Immature Grans % 0.3 %; Lymphocytes % 21.4 %; MCH 30.1 pg (27.0-33.0); MCHC 33.3 % (32.0-36.0); MCV 90 fL (80-95); MPV 9.9 fL (8.0-11.0); Monocytes % 6.6 %; Neutrophils % 67.9 %; Platelet Count 243 10^3/uL (130-400); RBC 4.71 10^6/uL (3.93-5.22); RDW 12.6 % (11.7-14.6); RDW-SD 41.9 fL; WBC 7.07 10^3/uL (4.4-10.8)
[2024-01-27 12:21] LABS: Bilirubin Negative (Negative); Blood Moderate (Negative); Clarity Clear (Clear); Glucose Negative (Negative); Ketones Negative (Negative); Leukocyte Esterase Negative (Negative); Nitrite Negative (Negative); Specific Gravity >= 1.030 (1.005-1.025); Urobilinogen 0.2 mg/dL (Up to 0.2); pH 6.5 (5-8)
[2024-01-27 12:28] LABS: ALT 30 U/L (14-59); AST 21 U/L (15-37); Albumin 4.2 g/dL (3.4-5.0); Alkaline Phosphatase 105 U/L (46-116); Anion Gap 7.5 mmol/L (3-11); BUN 12 mg/dL (7-18); Bilirubin, Total 0.94 mg/dL (0.2-1.0); CO2 28.5 mmol/L (21.0-32.0); CREATININE 0.8 mg/dL (0.55-1.02); Calcium 9.2 mg/dL (8.5-10.1); Chloride 101 mmol/L (98-107); Estimated GFR 90.27 (mL/min/1.73m2); Glucose 97 mg/dL (74-106); Potassium 3.8 mmol/L (3.5-5.1); Sodium 137 mmol/L (136-145)
--- NOTE | 2024-01-27 12:30 | DI.CT_ITS ---
Exam(s) CT RENAL COLIC WO EXAM: CT RENAL COLIC WO CLINICAL HISTORY: pain left back and suprapubic, heamturia. TECHNIQUE: Imaging Protocol: Axial computed tomography images with coronal and sagittal reformatted images were created and reviewed. CONTRAST MATERIAL: Noncontrast COMPARISON: CT CT ABDOMEN PELVIS WO from 11/11/2023 FINDINGS: ABDOMEN: Lung Bases: Normal where visualized. Liver: Normal attenuation. No measurable mass. Gallbladder and biliary tract: No radiodense calculus or dilation. Pancreas: Normal density, no calcifications or inflammatory process. Spleen: Normal. Kidneys: Normal size, contour and axis. No radiodense stones or obstructive uropathy. No masses seen. Adrenal glands: No masses seen. Abdominal Aorta: Abdominal portion non-dilated. Soft tissues: Small fact umbilical hernia. PELVIS: Bladder: Empty. Not well evaluated. No evidence of stones.No visible mass. Bowel: No obstruction or bowel wall thickening. Reproductive: Unremarkable. Peritoneal cavity: No ascites, collection or mesenteric inflammatory response. Bones: Unremarkable for age.. IMPRESSION: Unremarkable noncontrast CT scan of the abdomen and pelvis. RADIATION DOSE DELIVERED: 1,296.86mGy.cm Total DLP DATA REPOSITORY: All CT scans at this facility are submitted to the National Radiology Data Registry (NRDR) Dose Index Registry (DIR) with the [employer] (ACR). RADIATION OPTIMIZATION: All CT scans at this facility use at least one of these dose optimization te chniques: automated exposure control; mA and/or kV adjustment per patient size (includes targeted exa ms where dose is matched to clinical indication); or iterative reconstruction.
[2024-01-27 12:31] LABS: C & S Indicated? No; RBC >50 HPF (0-2)
[2024-01-27] MEDS: ACETAMINOPHEN 1,000 MG/100 ML BTL 400 MG IVPB (13:26)
[2024-01-27 14:17] VITALS: BP 117/77; PULSE 55; RESP 19; TEMP 36.9
--- NOTE | 2024-01-27 15:01 | W.ED.GENAD ---
Discharge Plan Disposition Patient Disposition: Home Condition: Stable Discharge Details Clinical Impression: Hematuria, Pyelonephritis Primary Care Provider: Danny Nagy ED Provider: Eugenio Cortez Home Meds and New Rx's Prescriptions: Continued multivit with min-folic acid [Daily Gummies] 200 mcg tablet,chewable See Rx Instructions PO DAILY Patient Comments: 2 tab PO ; DAILY Rx Instructions: 2 tab PO ; DAILY fluocinonide 0.1 % cream 1 applic topical BID-QID PRN (Reason: rash) Qty: 120 2RF glucosamine-chondroitin [Osteo Bi-Flex] 250-200 mg tablet 2 tab PO .QD Rx Instructions: give after food/meal Collagen Skin Renewal 30-833.3 mg tablet 1 tab PO ONCE desonide 0.05 % cream 1 applic TP BID PRN (Reason: eczema) Qty: 60 1RF valacyclovir 1 gram tablet 1,000 mg PO TID Qty: 21 0RF Rx Instructions: Take 1 tablet by mouth three times a day for 7 days Discontinued cefpodoxime 100 mg tablet 100 mg PO Q12H 7 Days Qty: 14 0RF Rx Instructions: must administer with a meal/food No Action levofloxacin 750 mg tablet 750 mg PO DAILY 5 Days Qty: 5 0RF ondansetron 4 mg tablet,disintegrating 4 mg PO Q8H PRNQty: 30 0RF Discharge Instructions Instructions: Urinary Tract Infection, Adult ED, Blood in Urine (Hematuria), Adult ED Additional Instructions: Please contact your primary care physician to arrange follow-up. Please follow-up with urology. Call to schedule an appointment. Return to the ER immediately for any worsening or new concerning symptoms. Referrals: Danny Nagy NP [Primary Care Provider] - Luiz Mejia MD [ [facility] STAFF PHYSICIAN] - Discharge Data Discharge Date/Time-TO BE ENTERED AT DEPARTURE: 01/27/24 16:31 HPI General Mode of arrival: ambulatory. Date/Time Provider Initiated Documentation: 01/27/24 12:04. Limitations to Documentation: no limitations. Information obtained by: patient. HPI Narrative: 48-year-old female here with chief complaint of dysuria. Patient notes dysuria, hematuria, left back pain that started early this morning. Pain moderate to severe. Symptoms started last night and have persisted. Urinalysis performed at [facility] revealed no urinary tract infection and there was concern for renal stone and she was sent for further evaluation. Patient denies fever. Related Data Home Medications ?Medication ?Instructions ?Recorded ?Confirmed multivitamin with minerals-folic See Rx Instructions PO DAILY daily 11/12/18 02/02/24 acid 200 mcg chewable tablet (Daily Gummies) fluocinonide 0.1 % topical cream 1 applic topical BID-QID PRN rash 09/29/21 02/02/24 #120 grams desonide 0.05 % topical cream 1 applic topical BID PRN eczema 02/21/22 02/02/24 #60 grams valacyclovir 1 gram tablet 1,000 mg PO TID #21 tabs 06/24/23 02/02/24 ascorbic acid 30 mg-collagen, 1 tab PO ONCE 11/27/23 02/02/24 hydrolyzed 833.3 mg tablet (Collagen Skin Renewal) glucosamine-chondroitin 250 mg-200 2 tab PO .QD 11/27/23 02/02/24 mg tablet (Osteo Bi-Flex) levofloxacin 750 mg tablet 750 mg PO DAILY 5 days #5 tabs 02/02/24 ondansetron 4 mg disintegrating 4 mg PO Q8H PRN #30 tabs 02/02/24 tablet Previous Rx's ?Medication ?Instructions ?Recorded fluocinonide 0.1 % topical cream 1 applic topical BID-QID PRN rash 09/29/21 #120 grams desonide 0.05 % topical cream 1 applic topical BID PRN eczema 02/21/22 #60 grams valacyclovir 1 gram tablet 1,000 mg PO TID #21 tabs 06/24/23 levofloxacin 750 mg tablet 750 mg PO DAILY 5 days #5 tabs 02/02/24 ondansetron 4 mg disintegrating 4 mg PO Q8H PRN #30 tabs 02/02/24 tablet Allergies Allergy/AdvReac Type Severity Reaction Status Date / Time Penicillins Allergy Intermediate RASH Verified 02/02/24 13:17 Sulfa (Sulfonamide Allergy Intermediate RASH Verified 02/02/24 13:17 Antibiotics) heat sweat Allergy Intermediate hives Uncoded 01/27/24 11:36 General Stated Complaint: FlankPain ROSEY: 3 Review of Systems All systems reviewed & are unremarkable except as noted in HPI and below Constitutional Constitutional: Denies fever(s) Genitourinary Genitourinary: Reports as per HPI Exam Const General: cooperative and no acute distress [facility] Mouth: moist mucous membranes Eyes Conjunctivae: normal conjunctivae Sclera: normal sclerae Resp Auscultation: clear to auscultation bilaterally, no rales, no rhonchi and no wheezes Cardio Rate: regular rate and not tachycardic Rhythm: regular rhythm GI Palpation: soft, not firm, no guarding, no masses, not rigid and nontender Skin General skin exam: no rashes or lesions noted Neuro General: patient alert, patient awake and tone normal Extrem General: no edema Course Vital Signs Vital signs: Vital Signs Temperature 36.9 C 01/27/24 11:32 Pulse 80 01/27/24 11:32 Respiratory Rate 20 01/27/24 11:32 Blood Pressure 127/93 H 01/27/24 11:32 Pulse Oximetry 100 01/27/24 11:32 Temperature 36.9 C 01/27/24 14:17 Temperature Source Oral 01/27/24 14:17 Pulse 55 L 01/27/24 14:17 Respiratory Rate 19 01/27/24 14:17 Respiratory Effort Normal 01/27/24 12:02 Blood Pressure 117/77 01/27/24 14:17 Blood Pressure Mean 90 01/27/24 14:17 Blood Pressure Position Sitting 01/27/24 11:32 Pulse Oximetry 100 01/27/24 11:32 Oxygen Delivery Method Room Air 01/27/24 11:32 Oxygen Flow Rate 0 01/27/24 11:32 Pain Level 1 01/27/24 14:17 Comment decreased w/ med administration 01/27/24 12:02 Lab/Test Results Lab/Test Results: Laboratory Tests Range/Units 01/27/24 11:56 WBC (4.4-10.8) 10^3/uL 7.07 RBC (3.93-5.22) 10^6/uL 4.71 Hgb (11.2-15.7) g/dL 14.2 Hct (36.0-46.0) % 42.6 MCV (80-95) fL 90 MCH (27.0-33.0) pg 30.1 MCHC (32.0-36.0) % 33.3 RDW (11.7-14.6) % 12.6 Plt Count (130-400) 10^3/uL 243 MPV (8.0-11.0) fL 9.9 Immature Gran % % 0.3 Neutrophils % % 67.9 Lymphocytes % % 21.4 Monocytes % % 6.6 Eosinophils % % 3.1 Basophils % % 0.7 Nucleated RBC % (0.0-0.3) % 0.0 Absolute Neutrophils (1.2-6.7) 10^3/uL 4.80 Absolute Lymphocytes (1.2-3.4) 10^3/uL 1.51 Absolute Monocytes (0.1-0.8) 10^3/uL 0.47 Absolute Eosinophils (0.0-0.7) 10^3/uL 0.22 Absolute Basophils (0.0-0.2) 10^3/uL 0.05 Sodium (136-145) mmol/L 137 Potassium (3.5-5.1) mmol/L 3.8 Chloride (98-107) mmol/L 101 Carbon Dioxide (21.0-32.0) mmol/L 28.5 Anion Gap (3-11) mmol/L 7.5 BUN (7-18) mg/dL 12 Creatinine (0.55-1.02) mg/dL 0.8 Est GFR (CKD-EPI 2020) (mL/min/1.73m2) 90.27 Glucose (74-106) mg/dL 97 Calcium (8.5-10.1) mg/dL 9.2 Total Bilirubin (0.2-1.0) mg/dL 0.94 AST (15-37) U/L 21 ALT (14-59) U/L 30 Alkaline Phosphatase (46-116) U/L 105 Total Protein (6.4-8.2) g/dL 8.0 Albumin (3.4-5.0) g/dL 4.2 Urine Color (Yellow) Yellow Urine Clarity (Clear) Clear Urine pH (5-8) 6.5 Ur Specific [place] (1.005-1.025) >= 1.030 H Urine Protein (Neg-Trace) mg/dL >=300 H Urine Ketones (Negative) mg/dL Negative Urine Blood (Negative) Moderate H Urine Nitrite (Negative) Negative Urine Bilirubin (Negative) Negative Urine Urobilinogen (Up to 0.2) mg/dL 0.2 Ur Leukocyte Esterase (Negative) Negative Urine RBC (0-2) HPF >50 H Urine WBC Not Applicable Ur Epithelial Cells Not Applicable Urine Crystals Not Applicable Urine Bacteria Not Applicable Urine Mucus Not Applicable Ur Culture Indicated? No Urine Glucose (Negative) mg/dL Negative POC- Test(urine) Negative Medical Decision Making 48-year-old female here with dysuria, hematuria, left back pain that started early this morning. Considered acute surgical pathology including obstructed renal stone. CT of the abdomen pelvis interpreted by radiology: Unremarkable noncontrast CT scan of the abdomen and pelvis. Suspect urinary tract infection and pyelonephritis. Consider stone that has passed. Will treat with ceftriaxone -discussed penicillin allergy. Patient did have hives but no airway involvement. Patient provided informed consent to treatment with cephalosporins. Patient already prescribed cefpodoxime by PCP but has not yet started. Plan for discharge with outpatient follow-up with urology. Lab Data Lab results reviewed: Yes I reviewed the patient's lab results. Labs: Laboratory Tests Range/Units 01/27/24 11:56 WBC (4.4-10.8) 10^3/uL 7.07 RBC (3.93-5.22) 10^6/uL 4.71 Hgb (11.2-15.7) g/dL 14.2 Hct (36.0-46.0) % 42.6 MCV (80-95) fL 90 MCH (27.0-33.0) pg 30.1 MCHC (32.0-36.0) % 33.3 RDW (11.7-14.6) % 12.6 Plt Count (130-400) 10^3/uL 243 MPV (8.0-11.0) fL 9.9 Immature Gran % % 0.3 Neutrophils % % 67.9 Lymphocytes % % 21.4 Monocytes % % 6.6 Eosinophils % % 3.1 Basophils % % 0.7 Nucleated RBC % (0.0-0.3) % 0.0 Absolute Neutrophils (1.2-6.7) 10^3/uL 4.80 Absolute Lymphocytes (1.2-3.4) 10^3/uL 1.51 Absolute Monocytes (0.1-0.8) 10^3/uL 0.47 Absolute Eosinophils (0.0-0.7) 10^3/uL 0.22 Absolute Basophils (0.0-0.2) 10^3/uL 0.05 Sodium (136-145) mmol/L 137 Potassium (3.5-5.1) mmol/L 3.8 Chloride (98-107) mmol/L 101 Carbon Dioxide (21.0-32.0) mmol/L 28.5 Anion Gap (3-11) mmol/L 7.5 BUN (7-18) mg/dL 12 Creatinine (0.55-1.02) mg/dL 0.8 Est GFR (CKD-EPI 2020) (mL/min/1.73m2) 90.27 Glucose (74-106) mg/dL 97 Calcium (8.5-10.1) mg/dL 9.2 Total Bilirubin (0.2-1.0) mg/dL 0.94 AST (15-37) U/L 21 ALT (14-59) U/L 30 Alkaline Phosphatase (46-116) U/L 105 Total Protein (6.4-8.2) g/dL 8.0 Albumin (3.4-5.0) g/dL 4.2 Urine Color (Yellow) Yellow Urine Clarity (Clear) Clear Urine pH (5-8) 6.5 Ur Specific [place] (1.005-1.025) >= 1.030 H Urine Protein (Neg-Trace) mg/dL >=300 H Urine Ketones (Negative) mg/dL Negative Urine Blood (Negative) Moderate H Urine Nitrite (Negative) Negative Urine Bilirubin (Negative) Negative Urine Urobilinogen (Up to 0.2) mg/dL 0.2 Ur Leukocyte Esterase (Negative) Negative Urine RBC (0-2) HPF >50 H Urine WBC Not Applicable Ur Epithelial Cells Not Applicable Urine Crystals Not Applicable Urine Bacteria Not Applicable Urine Mucus Not Applicable Ur Culture Indicated? No Urine Glucose (Negative) mg/dL Negative Quality:SDOH Health Related Social Needs: Health related social needs risk of homeless PFSH All Active Problems (Updated 02/02/24 @ 14:02 by HAYLIE Caicedo) Pyelonephritis (Acute) Pyelonephritis (Acute) Hematuria (Acute) Hematuria of unknown cause (Acute) Poor balance (Acute) Paresthesia (Acute) Peroneal neuritis (Acute) Pes cavus of both feet (Acute) Achilles tendon contracture, bilateral (Acute) Plantar fasciitis (Acute) Rectal bleeding (Acute) Benign paroxysmal positional vertigo (Acute) Heart murmur (Acute) normal echo 2001 Medical History Personal history of cervical dysplasia SHILPI 2/3 with LEEP in 2013 Normal yearly paps since Left lateral epicondylitis Eczema Herpes zoster (2019) Environmental allergies Asthma intermittent Cellulitis of leg (11/05/12) Chronic rhinitis (04/01/17) Closed fracture of lower leg Fibrocystic disease of breast (11/05/12) Hemorrhoid prolapse (04/18/17) Surgical History Status post LEEP (loop electrosurgical excision procedure) of cervix Cervical Procedure (11/12/12) LEEP; HGSIL Family History Mother Essential hypertension Hyperlipidemia Adopted Father Essential hypertension Hyperlipidemia Sister Gestational diabetes mellitus Grandfather , BLOOD CLOT IN HEART at age 67. No problems noted. Grandmother Personal history of malignant neoplasm BONE Son No problems noted. Social History Smoking/Tobacco Use Status: Never Second Hand Exposure: Yes Smoking risk assessment performed?: Yes Alcohol Intake: current Alcohol Intake frequency: holidays/special occasions only Alcohol type: hard liquor Drug use: Never Substance use type: does not use Household members: spouse Housing: house Communication Needs: None Do you need help understanding health information?: Never Pets and animals: No Sexually active: Yes Do you think of yourself as: straight/heterosexual Current gender identity: female What is your relationship status?: How often do you talk on the phone with friends or family?: twice per week How often do you get together with friends or relatives?: once per week Do you belong to any clubs or organized social groups?: no Panel score (0-1 are the most socially isolated patients): 2 What type of physical activity do you participate in: aerobic and weight lifting Sera/Buddhist: [employer] Seatbelt use: always Helmet use: Yes Helmet use: always Drive intox or ride w/intox bulk delivery driver: No Do you feel safe at home: Yes Do you feel safe in your relationship?: Yes History History 3 Para 1 Hx # Term Pregnancies 1 Multiple births Hx # Pregnancies Ectopic pregnancies AB induced Hx Number of Living Children 1 AB spontaneous 2 Past Pregnancies Del. Date GA/Weeks # Preg Succ Route Wgt Sex Labor Lgth Anesthesia Location Prov Complic 05/28/95 38 No Yes vaginal 2834.952 g [facility] Delivery Date: 05/28/95 Last Updated by: Jo Baptiste Baby inpatient for 5 days for not eating well/ weight loss.
[2024-01-27] MEDS: cefTRIAXone 1 GM/50 ML BAG IVPB (15:15)
[2024-01-27 15:44] VITALS: BP 143/84; PULSE 51; RESP 20; TEMP 37.1; O2SAT 96
[2024-01-27 17:43] LABS: Bilirubin Negative (Negative); Blood Large (Negative); Clarity Cloudy (Clear); Glucose Negative (Negative); Ketones Negative (Negative); Leukocyte Esterase Negative (Negative); Nitrite Negative (Negative); Specific Gravity 1.025 (1.005-1.025); Urobilinogen 0.2 mg/dL (Up to 0.2); pH 7.5 (5-8)
[2024-01-27 17:55] LABS: Bacteria Negative HPF (Negative); C & S Indicated? No; Crystals Negative HPF (Negative); Epithelial Cells Moderate HPF (Negative); Mucus Trace (Negative); RBC >50 HPF (0-2); WBC 0-2 HPF (0-5)
== END 2024-01-27 16:31 | disposition home or self-care (01) ==
PROVIDERS: Nurse Practitioner Family; Emergency Provider Student in an Organized Health Care Education/Training Program; PCP Nurse Practitioner Family
DX: R31.9 Hematuria, unspecified (principal); N10 Acute pyelonephritis
CPT/HCPCS: 80053; 96365; 96367; 96375; 99284; 74176; 81003; 81015; 85025; J0131; J0696; J1885

== ENCOUNTER 2024-02-02 12:34 | Emergency (ER) | payer OTHER, SELFPAY ==
[2024-02-02 12:38] VITALS: BP 152/73; PULSE 64; RESP 16; TEMP 36.7; O2SAT 98
--- OUTSIDE RECORDS SUMMARY | 2024-02-02 12:50 | XMS_ITS | Encounter Summary ---
Author Organization [facility] Address [address] [place] [address] Care Team Providers Care Customer Assistance Representative Name Role Phone Danny Nagy Primary Care Provider [phone] Reason for Referral * Referral (Routine/Next Available) - Authorization Not Required Specialty Diagnoses / Procedures Referred By Trinoac t Referred To Contact General Surgery Diagnoses Bright red blood per rectum Procedures COLONOSCOPY Cassy Garsia MD [address] [place] [phone] Cassy Garsia MD [address] [place] [phone] Referral ID Status Reason Start Date Expiration Date Visits Requested Visits Authorized [id number] Authorization Not Required 11/29/2021 1 1 Reason for Visit * Auth/Cert Specialty Diagnoses / Procedures Referred By Contac t Referred To Contact Referral ID Status Reason Start Date Expiration Date Visits Re quested Visits Authorized [id number] 1 1 Encounter Details Date Type Department Care Team (Latest Contact Info) Description 01/15/2022 9:58 EDT - 01/15/2022 23:59 EDT Hospital Encounter [facility] [address] [place] [id number] Cassy Garsia MD [address] [place] [phone] Bright red blood per rectum Discharge Disposition: Home or Self Care Social History Tobacco Use Types Packs/Day Years Used Date Smoking Tobacco: Never Smokeless Tobacco: Never Alcohol Use Standard Drinks/Week Comments Yes 0 (1 standard drink = 0.6 oz pur e alcohol) occasional Sex and Gender Information Value Date Recorded Sex Assigned at Not on file Gender Identity Not on file Sexual Orientation Not on file documented as of this encounter Last Filed Vital Signs Vital Sign Reading Time Taken Comments Blood Pressure 113/46 01/15/2022 1256 EDT Pulse - - Temperature 37.2 ??C (98.9 ??F) 01/15/2022 1019 EDT Respiratory Rate 14 01/15/2022 1256 EDT Oxygen Saturation 97% 01/15/2022 1256 EDT Inhaled Oxygen Concentration - - Weight 83 kg (183 lb) 01/15/2022 1019 EDT Height 160 cm (5' 3) 01/15/2022 1019 EDT Body Mass Index 32.42 01/15/2022 1019 EDT documented in this encounter Medications at Time of Discharge Medication Sig Dispensed Refills Start Date End Date UNKNOWN TO PATIENT control pill documented as of this encounter Discharge Disposition Disposition Code Departure Means Destination Home or Self Fdc documented in this encounter H&P Notes * Cassy Garsia MD - 01/15/2022 1100 EDT Endoscopy Sedation for Procedure History & Physical Date: 01/15/2022 Time: 11:28 Location: [facility] Endoscopy Planned Procedure: Colonoscopy Chief Complaint/Indications for Procedure: Bright red blood per rectum History Previous Complication with Sedation and/or Anesthesia? No (emesis) Allergies: Allergies Allergen Reactions ??? Penicillins Rash ??? Sulfa (Sulfonamide Antibiotics) Rash Current Medications: Current Outpatient Medications Medication ??? UNKNOWN TO PATIENT Current Facility-Administered Medications Medication Route Frequency ??? sodium chloride 0.9 % (NS) infusion intravenous PRN Or ??? lactated ringers (LR) infusion intravenous PRN ??? lidocaine (PF) 10 mg/mL (1 %) injection 2 mg intradermal PRN ??? lidocaine (PF) 10 mg/mL (1 %) injection 2 mg intradermal PRN ??? ondansetron (PF) (ZOFRAN) injection 4 mg intravenous PRN ??? sodium chloride 0.9 % (flush) flush 3 mL intravenous PRN ??? sodium chloride 0.9 % (flush) flush 5 mL intravenous Q8H Past Medical History: Past Medical History: Diagnosis Date ??? Arthritis ??? Asthma Social History: Past Surgical History: Procedure Laterality Date ??? CYST REMOVAL Right right hand ??? WISDOM TOOTH EXTRACTION Social History Tobacco Use ??? Smoking status: Never Smoker ??? Smokeless tobacco: Never Used Substance Use Topics ??? Alcohol use: Yes Comment: occasional Family History: Family History Problem Relation Age of Onset ??? High Cholesterol Mother ??? Colon Polyps Mother ??? Arthritis Mother ??? High Blood Pressure Mother ??? Early Father ??? Arthritis Father ??? High Blood Pressure Father Review of Systems as pertinent: Physical Exam Vital Signs: BP 124/73 Temp 37.2 ??C (98.9 ??F) (Oral) Resp 16 Ht 160 cm (63) Wt 83 kg (183 lb) SpO2 99% BMI 32.42 kg/m?? Heart Examination: Cardiac Regularity: Regular Respiratory Examination: Respiratory Pattern: Regular Breath Sounds Right: Clear Breath Sounds Left: Clear Abdominal Examination: Additional physical exam related to the proposed procedure, patient activity, disease state and treatment as pertinent: Assessment Previous complications with sedation or anesthesia?: No (emesis) Anesthesia Classification: ASA 1 Plan: Proceed with sedation for procedure Fasting Time: Date of Last Liquid: 01/15/22 Time of Last Liquid: 0530 Date of Last Solid: 01/14/22 Time of Last Solid: 0800 Patient Appropriate Candidate for Planned Sedation?: Yes Cassy Garsia MD 01/15/2022 11:28 documented in this encounter Miscellaneous Notes * Sedation Documentation - Erendira Winter RN - 01/15/2022 1207 EDT Abdominal pressure applied. * Sedation Documentation - Erendira Winter RN - 01/15/2022 1143 EDT Patient repositioned. * Sedation Documentation - Erendira Winter RN - 01/15/2022 1142 EDT Abdominal pressure applied. documented in this encounter Plan of Treatment Not on file documented as of this encounter Procedures Procedure Name Priority Date/Time Associated Diagnosis Comments ECG REPORT - SCANNED 01/17/2022 10:39 EDT SURGICAL PATHOLOGY Routine 01/15/2022 12 :11 EDT Bright red blood per rectum COLONOSCOPY Routine 01/15/2022 11:00 EDT Bright red blood per rectum documented in this encounter Results * ECG REPORT - SCANNED (01/17/2022 10:39 EDT) 01/17/2022 10:3 9 EDT Scan 2 Patent Prosecution Paralegal PROCEDURE/MINOR BRAD GICAL ORDERABLES * SURGICAL PATHOLOGY (01/15/2022 12:11 EDT) Note to Patient The following pathology results have been interpreted by your pathologist and may be available to you before your health provider has had the opportunity to review them. Please allow time for your provider to receive these results and explore management options, if applicable. 01/16/2022 16:37 T [facility] Final Diagnosis A. COLON, CECUM, POLYP: - Fragment of colonic mucosa with surface hyperplastic change. See comment. 01/16/2022 16:37 T [facility] Diagnosis Comment Deeper levels were examined. 01/16/2022 16:37 [facility] Attestation By the signature below, the attending physician certifies that they have 1) personally conducted a gross and/or microscopic examination of the described specimen(s), and/or personally interpreted the results of laboratory testing of the described specimen(s), and 2) personally rendered or confirmed the above diagnosis. 01/16/2022 16:37 EDT [facility] at 1637 Clinical History Bright red blood per rectum 01/16/2022 16:37 EDT [facility] Gross Description A. Received in formalin labeled ? Hattie Mcnamara? and ? cecum polyp? is a single small linton tissue fragment measuring 0.3 x 0.2 x 0.1 cm, entirely submitted in cassette A1. Jose Manuel Galavn MD 01/15/2022 15:59 01/16/2022 16:37 EDT [facility] Performing Lab [facility] 01/16/2022 16:37 EDT [facility] Scanned Images 01/16/2022 16:37 EDT [facility] Tissue POLYP OF COLON / Unknown 01/15/2022 12:11 EDT 01/15/2022 14:10 EDT Cassy Garsia MD PATHOLOGY ORDERABLES Performing Organization Address City/State/[facility] Co de Phone Number [facility] [address] [place] [address] * COLONOSCOPY (01/15/2022 11:00 EDT) Anatomical Region Laterality Modality Endoscopy Narrative 01/15/2022 11:00 EDT [facility] ?? [place] [id number] ?? Patient Name ? HATTIE MCNAMARA Date of ? 1975 Record Number ? [id number] Date/Time of Procedure ?01/15/2022, 11:00:00 AM Endoscopist ?Cassy Garsia ?? Broom Bundler ? Referring Physician(s) ?? Huy Smith M.D. Anesthesiologist ? PROCEDURE PERFORMED: COLONOSCOPY - biopsy INDICATIONS FOR EXAMINATION: screening Instruments: ? [id number] ([id number]) Medications: ?Fentanyl 150 mcg, Versed 8 mg I was in continuous face to face attendance during the administration of moderate sedation services that were monitored by an independent trained observer who had no other duties during the procedure. ? Visualization: ? Good ?Tolerance: Good ?Complications: None ? Extent of Exam: ?cecum ? Limitations: ?? Procedure Technique: A physical exam was performed. Informed consent was obtained from the patient after explaining all the risks (perforation, bleeding, infection and adverse effects to the medicine) , benefits and alternatives to the procedure which the patient appeared to understand and so stated. ??The patient was connected to the monitoring devices and placed in the left lateral position. Continuous oxygen was provided with a nasal cannula and IV medicine administered thru an indwelling cannula. After adequate conscious sedation was achieved, a digital exam was performed and the colonoscope introduced into the rectum and advanced under direct visualization to the cecum which was identified by visual landmarks. The scope was subsequently removed slowly while carefully examining the color, texture, anatomy, and integrity of the mucosa on the way out. In the rectum the scope was retroflexed to evaluate for internal hemorrhoids and anorectal pathology. The patient was subsequently transferred to the recovery area in satisfactory condition. The following findings were noted: FINDINGS: Normal rectal exam without concerning masses or lesions. ??Excellent prep. ??No evidence diverticulosis. ??Diminuitive polyp at ileocecal valve removed with cold biopsy forceps. ENDOSCOPIC DIAGNOSIS: Colon polyp (hyperplastic?) RECOMMENDATIONS: Repeat colonoscopy in 5 years if adenomatous, 10 years if hyperplastic. Sedation Start: 11:30:34 AM ?? Sedation End: 12:19:27 PM Signature: Cassy Garsia M.D. This note was electronically signed on 01/15/2022 12:25:25 PM By Cassy Garsia M.D. Cassy Garsia MD GI PROCEDURE ORDERAB LES documented in this encounter Visit Diagnoses Diagnosis Bright red blood per rectum Hemorrhage of rectum and anus documented in this encounter Administered Medications Inactive Administered Medications - up to 3 most recent administrations Medication Order MAR Action Action Date Dose Rate Site fentaNYL citrate (PF) injection intravenous, PRN, Starting on Sat01/15/22 at 1129, Until Sat01/15/22 at 1205, Routine Given 01/15/2022 12:05 EDT 25 mcg Given 01/15/2022 11:53 EDT 25 mcg Given 01/15/2022 11:44 EDT 25 mcg midazolam (MDV) (VERSED) injection intravenous, PRN, Starting on Sat01/15/22 at 1129, Until Sat01/15/22 at 1205, Routine Given 01/15/2022 12:05 EDT 1 mg Given 01/15/2022 11:53 EDT 1 mg Given 01/15/2022 11:44 EDT 1 mg ondansetron (PF) (ZOFRAN) injection 4 mg 4 mg, intravenous, PRN, Starting on Sat01/15/22 at 1014, Until Sat01/17/22 at 0202, Nausea, Vomiting, Routine, Intraprocedure Given 01/15/2022 11:25 EDT 4 mg simethicone (MYLICON) drops oral, PRN, Starting on Sat01/15/22 at 1138, Until Sat01/15/22 at 1138, Routine Given 01/15/2022 11:38 EDT 64 mg Other documented in this encounter Orders Medications Ordered That Ralf ht Not Have Been Administered Count Last Ordered Date First Ordered Date lactated ringers (LR) infusion 1 01/15/2022 lidocaine (PF) 10 mg/mL (1 % ) injection 2 mg 2 01/15/2022 sodium chloride 0.9 % (flush) flush 3 mL 1 01/15/2022 sodium chloride 0.9 % (flush) flush 5 mL 1 01/15/2022 sodium chloride 0.9 % (NS) infusion 1 01/15 documented in this encounter Care Teams Customer Assistance Representative Relationship Specialty Start Date End Date Danny Nagy [address] [place] [phone] PCP - General Family Medicine - [facility] 11/15/21 documented as of this encounter
--- OUTSIDE RECORDS SUMMARY | 2024-02-02 12:50 | XMS_ITS | Encounter Summary ---
Author Organization [facility] Address [address] [place] [address] Care Team Providers Care Medical Instrument Technician Name Role Phone Unavailable Primary Care Provider Unavailabl e Encounter Details Date Type Department Care Team (Late st Contact Info) Description 08/12/2003 Results Only [facility] [address] [place] [address] Raheem Romero MD [address] [place] [address] [place] [phone] Social History Tobacco Use Types Packs/Day Years Used Date Smoking Tobacco: Never Assessed Sex and Gender Information Value Date Recorded Sex Assigned at Not on file Gender Identity Not on file Sexual Orientation Not on file documented as of this encounter Plan of Treatment Not on file documented as of this encounter Procedures Procedure Name Priority Date/Time Associated Diagnosis Comments SURGICAL PATHOLOGY Routine 08/12/2003 0:00 EST documented in this encounter Results * SURGICAL PATHOLOGY (08/12/2003 0:00 EST) Pathology Report: SURGICAL PATHOLOGY REPORT Reports generated via electronic interface contain original data; however they are lacking the format of the original report. Caution should be taken when reading/interpreti ng unformatted reports. Name: ? HATTIE MCNAMARA ? Accession #: ? [id number] ? : ? 1975 (Age: 28) ??F ? Collect Date: ? 08/12/2003 ? Location: ? [facility] ? Receive Date: ? 08/13/2003 ? Provider: RAHEEM ROMERO MD Copy to: PHYLLIS SHELLEY MD ? Final Pathologic Diagnosis: ? Cervix, 12 o'clock, biopsy: - Transformation zone cervical mucosa with acute and chronic cervicitis, reactive epithelial changes, ??and squamous metaplasia. Document reviewed and electronically signed by: Kenna Yung [facility] Report ??Date: 08/17/2003 15:11 By the signature above, the attending physician certifies that he/she has personally conducted a gross and/or microscopic examination of the described specimens and rendered or confirmed the above diagnosis. Specimen(s) Received: ? Cervical biopsy @ 12 o' clock Clinical History: ? ASCUS PAP + HPV Gross Description: ? Received in formalin labelled Alexis and cx 12 o' clock are multiple fragments of linton-white to linton-brown soft tissue which have an aggregate measurement of 1.0 x 0.6 x 0.2 cm. ??The specimen is submitted entirely as one cassette. ??(Dr. Donovan)/[facility] End of Report RAUL ATKINSON 08/12/2003 08/13/2003 15: 12 EST Raheem Romero MD PATHOLOGY ORDERABLES RAUL ATKINSON [address] [place] [address] documented in this encounter Visit Diagnoses Not on filedocumented in this encounter
--- OUTSIDE RECORDS SUMMARY | 2024-02-02 12:50 | XMS_ITS | Encounter Summary ---
Author Organization [facility] Address [address] [place] [address] Care Team Providers Care Staff Attorney Name Role Phone Mounika Melendrez Primary Care Provider Unavailab le Encounter Details Date Type Department Care Team (Late st Contact Info) Description 12/13/2015 Results Only [facility] [phone] Meme Yarbrough NP [address] [phone] Social History Tobacco Use Types Packs/Day Years Used Date Smoking Tobacco: Never Assessed Sex and Gender Information Value Date Recorded Sex Assigned at Not on file Gender Identity Not on file Sexual Orientation Not on file documented as of this encounter Plan of Treatment Not on file documented as of this encounter Procedures Procedure Name Priority Date/Time Associated Diagnosis Comments PAP TEST- RESULT ONLY Routine 12/13/2015 0:00 EDT documented in this encounter Results * PAP TEST- RESULT ONLY (12/13/2015 0:00 EDT) Pathology Report: CYTOPATHOLOGY REPORT Reports generated via electronic interface contain original data; however they are lacking the format of the original report. Caution should be taken when reading/interpret ing unformatted reports. Name: ? HATTIE MCNAMARA ? Accession #: ? [id number] ? : ? 1975 (Age: 40) ??F ?Collect Date: ? 12/13/2015 ? Location: ? [facility] ? Receive Date: ? 12/14/2015 ? Provider: MEMEMonet YARBROUGH CORPORATE DEVELOPMENT MANAGER Copy to: ? Final Report SPECIMEN ADEQUACY ? Satisfactory for Evaluation - transformation zone component present GENERAL CATEGORIZATION ? Epithelial Cell Abnormality INTERPRETATION ? Squamous Cell Abnormality - Atypical squamous cells, undetermined significance (ASC-US). EDUCATIONAL NOTES/RECOMMENDAT IONS ? [facility] recommends following ASCCP's 2012 Updated Consensus Guidelines for the Management of Abnormal Cervical Cancer Screening Tests and Cancer Precursors (JLGTD, 2013; 17(5):S1-S27). ??Consensus guidelines are available online at www.asccp.org. Last Menstrual Period: unknown Hormonal/Contrace ptive status: Yes Previous Gynecologic Pathology: SHILPI II-III ASC-US: 09/24/12 Treatment History: Colposcopy: 10/2012 LEEP: 10/2012 Infection History: Pos for HPV: 09/24/12,2010,2011, 2012 Specimen/Source: ??Pap Test, Cervix/Endocervix , ThinPrep Imaging System with manual evaluation Document reviewed and electronically signed by: ? DIANA HORTON MD ? Report ??Date: 12/27/2015 17:42 HPV with Pap Test ? Date Ordered: ? 12/27/2015 ? Status: ?? Signed Out ?Date Complete: ? 12/30/2015 ? By: ??System Interface ? Date Reported: ? 12/30/2015 ? Interpretation RESULT: Negative for HPV. No E6 or E7 mRNA is detected from HPV types 16,18,31,33,35, 39,45,51,52,56,58 ,59,66, and 68 by anesthesiology resident mediated amplification. Comments Document reviewed and electronically signed by: ? System Interface ? Report date: 12/30/2015 By the signature above, the attending physician certifies that he/she has personally conducted a gross and/or microscopic examination of the described specimens and rendered or confirmed the above diagnosis. End of Report [facility] 12/13/2015 12/14/2015 Meme Yarbrough NP PATHOLOGY ORDERABLES [facility] [address] [place] [address] documented in this encounter Visit Diagnoses Not on filedocumented in this encounter Care Teams Staff Attorney Relationship Specialty Start Date End Date Mounika Melendrez PA PCP - General 09/22/12 12/31/15 documented as of this encounter
--- OUTSIDE RECORDS SUMMARY | 2024-02-02 12:50 | XMS_ITS | Encounter Summary ---
Author Organization [facility] Address [address] [place] [address] Care Team Providers Care Wet Machine Cutter Name Role Phone Danny Nagy Primary Care Provider [phone] Reason for Referral * Referral (Routine/Next Available) - Authorization Not Required Specialty Diagnoses / Procedures Referred By Contac t Referred To Contact General Surgery Diagnoses Bright red blood per rectum Procedures COLONOSCOPY Cassy Garsia MD [address] [place] [phone] Cassy Garsia MD [address] [place] [phone] Referral ID Status Reason Start Date Expiration Date Visits Requested Visits Authorized [id number] Authorization Not Required 11/29/2021 1 1 Reason for Visit * Reason Comments Hemorrhoids * Referral (Urgent) - Authorization Not Required Specialty Diagnoses / Procedures Referred By Contac t Referred To Contact General Surgery Diagnoses Hemorrhage of anus and rectum Kory Lebron DO [address] [place] [address] [facility] General Surgery [address] [place] [address] Referral ID Status Reason Start Date Expiration Date Visits Requested Visits Authorized [id number] Authorization Not Required 1 1 Encounter Details Date Type Department Care Team (Late st Contact Info) Description 11/29/2021 13:00 EDT Office Visit [facility] General Surgery [address] [place], [place] [address] Cassy Garsia MD [address] [facility] [address] [place] [phone] Bright red blood per rectum (Primary Dx) Social History Tobacco Use Types Packs/Day Years [...] Sign Reading Time Taken Comments Blood Pressure 117/69 11/29/2021 1257 EDT Pulse 64 11/29/2021 1257 EDT Temperature - - Respiratory Rate - - Oxygen Saturation - - Inhaled Oxygen Concentration - - Weight 82.6 kg (182 lb) 11/29/2021 1257 EDT Height 160 cm (5' 3) 11/29/2021 1257 EDT Body Mass Index 32.24 11/29/2021 1257 EDT documented in this encounter Progress Notes * Cassy Garsia MD - 11/29/2021 1300 EDT [facility] H[facility]ORY AND PHYSICAL EXAMINATION Date of Service: 11/29/2021 PROBLEM: Chief Complaint Patient presents with ??? Hemorrhoids SUBJECTIVE: Ms. Mcnamara is an extremely pleasant 46-year-old woman who presents to discuss an episode of bright red blood per rectum around Easter time. She also says she is due for colonoscopy. She had 1 week of bright red blood after bowel movement sometime around [place]. It did not trip into the toilet bowl or onto her underwear. She said her primary care doctor did a digital rectal exam and did not appreciate anything concerning. The patient moves her bowels daily or almost daily and says they are generally formed. She spends a limited amount of time sitting on the toilet to have a bowel movement and does not bring her phone in with her. On average she drinks 32 ounces of water per day. Her diet is relatively healthy. She does not take a fiber supplement or stool softener. There is no colon cancer history in her family. PROBLEM LIST: Patient Active Problem List Diagnosis ??? Bright red blood per rectum Past Medical History: Diagnosis Date ??? Arthritis ??? Asthma History reviewed. No pertinent surgical history. Family History Problem Relation Age of Onset ??? High Cholesterol Mother ??? Colon Polyps Mother ??? Arthritis Mother ??? High Blood Pressure Mother ??? Early Father ??? Arthritis Father ??? High Blood Pressure Father Social History Socioeconomic History ??? Marital status: Spouse name: None ??? Number of children: None ??? Years of education: None ??? Highest education level: None Occupational History ??? None Tobacco Use ??? Smoking status: Never Smoker ??? Smokeless tobacco: Never Used Substance and Sexual Activity ??? Alcohol use: Yes Comment: occasional ??? Drug use: Not Currently ??? Sexual activity: None Other Topics Concern ??? None Social History Narrative ??? None Social Determinants of Health Financial Resource Strain: Not on file Food Insecurity: Not on file Transportation Needs: Not on file Physical Activity: Not on file Stress: Not on file Social Connections: Not on file She lives in [place] with her . 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 Current Outpatient Medications Medication ??? UNKNOWN TO PATIENT No current facility-administered medications for this visit. ALLERGIES: Allergies Allergen Reactions ??? Penicillins Rash ??? Sulfa (Sulfonamide Antibiotics) Rash REVIEW OF SYSTEMS: A 10-point review of systems was conducted. Pertinent positives are listed in the HPI above and listed below. All other systems are negative. Constitutional: Excess sweating Skin: Rash, itching due to eczema Head and neck: Headaches, ringing in ears, nosebleeds Neurological: Dizziness Cardiovascular: Palpitations and heart murmur Gastrointestinal: Blood in stool Musculoskeletal: Neck pain, joint pain PHYSICAL EXAM: BP 117/69 Pulse 64 Ht 160 cm (63) Wt 82.6 kg (182 lb) BMI 32.24 kg/m?? General: well-nourished, very pleasant, NAD HEENT: head normocephalic, mask over nose and mouth. Eyes: sclera non-icteric Heart: RRR, no M/R/G Lungs: ctab Skin: warm and dry, no rashes Musculoskeletal: full range of motion, normal muscle strength and tone for age ASSESSMENT: Encounter Diagnosis Name Primary? Bright red blood per rectum Yes Ms. Mcnamara is a 46-year-old woman due for colonoscopy. She also has limited history of bright red blood per rectum likely due to internal hemorrhoids. PLAN: We discussed the pathophysiology of internal versus external hemorrhoids. We reviewed lifestyle modifications including increased fiber and water intake, increased physical activity, limiting the time spent sitting on the toilet. I provided her with written materials. We also reviewed the colonoscopy procedure. I provided her with a written copy of the MiraLAX prep instructions and we went over the instructions together verbally. We will schedule her for next available colonoscopy. The patient demonstrated understanding. There were no barriers to understanding. Cassy Garsia MD 11/29/2021 documented in this encounter Plan of Treatment Not on file documented as of this encounter Results * COLONOSCOPY (01/15/2022 11:00 EDT) Anatomical Region Laterality Modality Endoscopy Narrative 01/15/2022 11:00 EDT [facility] ?? [address] [facility], [place], [place] [address] ?? Patient Name ? HATTIE MCNAMARA Date of ? 1975 Record Number ? [id number] Date/Time of Procedure ?01/15/2022, 11:00:00 AM Endoscopist ?Cassy Garsia ?? Syrup Blender ? Referring Physician(s) ?? Huy Smith M.D. Anesthesiologist ? PROCEDURE PERFORMED: COLONOSCOPY - biopsy INDICATIONS FOR EXAMINATION: screening Instruments: ? [id number] ([id number]) Medications: ?Fentanyl 150 mcg, Versed 8 mg [...] Visit Diagnoses Diagnosis Bright red blood per rectum- Primary Hemorrhage of rectum and anus Bright red blood per rectum Hemorrhage of rectum and anus documented in this encounter Historical Medications * This list may reflect changes made after this encounter. Medication Sig Dispensed Refills Start Date End Date UNKNOWN TO PATIENT control pill added in this encounter Care Teams Wet Machine Cutter Relationship Specialty Start Date End Date Danny Nagy [address] [place] [address] PCP - General Family Medicine - [facility] Medicine 11/15/21 documented as of this encounter
--- OUTSIDE RECORDS SUMMARY | 2024-02-02 12:50 | XMS_ITS | Encounter Summary ---
Author Organization [facility] Address [address] [place] [address] Care Team Providers Care Education Department Registrar Name Role Phone Meme Yarbrough SALES ROUTE DRIVER HELPER Primary Care Provider [phone] Encounter Details Date Type Department Care Team (Late st Contact Info) Description 02/06/2019 Results Only [facility] [phone] Anthony Funes, [facility] [address] [place] [address] [place] [address] Social History Tobacco Use Types Packs/Day Years [...] Diagnosis Comments PAP TEST- RESULT ONLY Routine 02/06/2019 0:00 EDT documented in this encounter Results * PAP TEST- RESULT ONLY (02/06/2019 0:00 EDT) Pathology Report: CYTOPATHOLOGY REPORT Reports generated via electronic interface contain original data; however they are lacking the format of the original report. Caution should be taken when reading/interpreti ng unformatted reports. Name: ? HATTIE MCNAMARA ? Accession #: ? [id number] ? : ? 1975 (Age: 43) ??F ?Collect Date: ? 02/06/2019 ? Location: ? [facility] ? Receive Date: ? 02/09/2019 ? Provider: ANTHONY FUNES BUSINESS TRAINER Copy to: NEVIN SCHMITZ MD ? Final Report SPECIMEN ADEQUACY ? Satisfactory for Evaluation - transformation zone component absent GENERAL CATEGORIZATION ? Negative for Intraepithelial Lesion or Malignancy ?? Last Menstrual Period: 01/27/19 Previous Gynecologic Pathology: SHILPI II-III: 2013 Specimen/Source: ??Pap Test, Cervix, ThinPrep Imaging System with manual evaluation Document reviewed and electronically signed by: ? Renetta Oropeza, CT(ASCP) ? Report ??Date: 02/10/2019 16:14 HPV with Pap Test ? Date Ordered: ? 02/10/2019 ? Status: ?? Signed Out ?Date Complete: ? 02/11/2019 ? By: ??System Interface ? Date Reported: ? 02/11/2019 ? Interpretation RESULT: Negative for HPV. No E6 or E7 mRNA is detected from HPV types 16,18,31,33,35, 39,45,51,52,56,58, 59,66, and 68 by bilingual administrative assistant mediated amplification. Comments Document reviewed and electronically signed by: ? System Interface ? Report date: 02/11/2019 By the signature above, the attending physician certifies that he/she has personally conducted a gross and/or microscopic examination of the described specimens and rendered or confirmed the above diagnosis. End of Report [facility] 02/06/2019 02/09/2019 Anthony Funes BUSINESS TRAINER PATHOLOGY ORDERABLES [facility] [address] [place] [address] documented in this encounter Visit Diagnoses Not on filedocumented in this encounter Care Teams Education Department Registrar Relationship Specialty Start Date End Date Meme Yarbrough NP PCP - General 01/01/16 11/14/21 documented as of this encounter
--- OUTSIDE RECORDS SUMMARY | 2024-02-02 12:50 | XMS_ITS | Encounter Summary ---
Author Organization [facility] Address [address] [place] [address] Care Team Providers Care Farm Instructor Name Role Phone Meme Yarbrough NP Primary Care Provider [phone] Danny Nagy Primary Care Provider [phone] Encounter Details Date Type Department Care Team (Late st Contact Info) Description 02/27/2021 Lab Requisition [facility] Pathology & Laboratory Medicine - [address] [address] Heather Funes, [facility] [address] [place] [address] [place] [address] Encounter for other general examination Social History Tobacco Use Types Packs/Day Years Used Date Smoking Tobacco: Never Assessed Sex and Gender Information Value Date Recorded Sex Assigned at Not on file Gender Identity Not on file Sexual Orientation Not on file documented as of this encounter Plan of Treatment Not on file documented as of this encounter Procedures Procedure Name Priority Date/Time Associated Diagnosis Comments PAP TEST Today 02/24/2021 15:45 EDT Encounter for other general examination HPV DNA DETECTION WITH GENOTYPING, PCR Today 02/24/2021 15:45 EDT Encounter for other general examination documented in this encounter Results * HUMAN PAPILLOMAVIRUS (HPV) DETECTION-HIGH RISK TYPES (02/24/2021 15:45 EDT) HPV other High Risk types, PCR Negative Negative 03/08/2021 15:24 EDT [facility] Comment:No E6 or E7 mRNA is detected from HPV types 16,18,31,33,35,39,45,51,52,56,58,59,66, and 68 by head holder mediated amplification. Papanicolaou smear specimen (specimen) CERVIX UTERI STRUCTURE / Unknown 02/24/2021 15:45 EDT 03/07/2021 9:02 EDT Heather Funes PRINTING PRESSMAN MICROBIOLOGY - GENER AL ORDERABLES [facility] [address] [place] [address] * PAP TEST (02/24/2021 15:45 EDT) Specimens A. Cervix and/or Endocervix , ThinPrep Imaging System with Manual Evaluation 03/08/2021 15:24 EDT [facility] Specimen Adequacy Satisfactory for Evaluation - transformation zone component present 03/08/2021 15:24 EDT [facility] General Categorization Negative for intraepithelial lesion or malignancy 03/08/2021 15:24 EDT [facility] Attestation . 03/08/2021 15:24 T [facility] at 1524 Clinical History See below 03/08/20 15:24 EDT [facility] HPV The result for the Human Papillomavirus (HPV) Detection-High Risk Types is Negative. No E6 or E7 mRNA is detected from HPV types 16,18,31,33,35,39 ,45,51,52,56,58,5 9,66, and 68 by head holder mediated amplification.Stephany ting was performed on specimen [id number] and was resulted on 03/08/2021 1511 EDT by KAILA, LAB INSTRUMENT RESULTS IN 03/08/2021 15:24 EDT [facility] Performing Lab [facility] 03/08/2021 15:24 EDT [facility] Scanned Images 03/08/2021 15:24 EDT [facility] Papanicolaou smear specimen (specimen) CERVIX UTERI STRUCTURE / Unknown 02/24/2021 15:45 EDT 02/27/2021 11:30 EDT Heather Funes PRINTING PRESSMAN PATHOLOGY ORDERABLES [facility] [address] [place] [address] documented in this encounter Visit Diagnoses Diagnosis Encounter for other general examination documented in this encounter Care Teams Farm Instructor Relationship Specialty Start Date End Date Meme Yarbrough NP PCP - General 01/01/16 11/14/21 Danny Nagy [address] [place] [address] PCP - General Family Medicine - [facility] 11/15/21 documented as of this encounter
--- OUTSIDE RECORDS SUMMARY | 2024-02-02 12:50 | XMS_ITS | Encounter Summary ---
Author Organization [facility] Address [address] [place] [address] Care Team Providers Care Vacation Planner Name Role Phone Mounika Melendrez Primary Care Provider Unavailab le Encounter Details Date Type Department Care Team (Latest Contact Info) Description 12/13/2015 12:51 EDT - 12/13/2015 23:59 EDT Hospital Encounter [address] [address] Unknown, Provider, Discharge Disposition: Home or Self Care Social History Tobacco Use Types Packs/Day Years Used Date Smoking Tobacco: Never Assessed Sex and Gender Information Value Date Recorded Sex Assigned at Not on file Gender Identity Not on file Sexual Orientation Not on file documented as of this encounter Discharge Disposition Disposition Code Departure Means Destination Home or Self Skilled Nursing documented in this encounter Plan of Treatment Not on file documented as of this encounter Visit Diagnoses Not on filedocumented in this encounter Care Teams Vacation Planner Relationship Specialty Start Date End Date Mounika Melendrez PA PCP - General 09/22/12 12/31/15 documented as of this encounter
--- OUTSIDE RECORDS SUMMARY | 2024-02-02 12:50 | XMS_ITS | Encounter Summary ---
Author Organization [facility] Address [address] [place] [address] Care Team Providers Care Extruder Operator Vertical Name Role Phone Unavailable Primary Care Provider Unavailabl e Encounter Details Date Type Department Care Team (Late st Contact Info) Description 11/01/1999 Results Only [facility] [address] [place] [address] Chrissy Gonzalez [address] [facility] [address] [place], [place] [id number] Social History Tobacco Use Types Packs/Day Years Used Date Smoking Tobacco: Never Assessed Sex and Gender Information Value Date Recorded Sex Assigned at Not on file Gender Identity Not on file Sexual Orientation Not on file documented as of this encounter Plan of Treatment Not on file documented as of this encounter Procedures Procedure Name Priority Date/Time Associated Diagnosis Comments CYTOPATHOLOGY Routine 11/01/1999 13:39 EDT documented in this encounter Results * CYTOPATHOLOGY (11/01/1999 13:39 EDT) Pathology Report: CYTOPATHOLOGY REPORT Reports generated via electronic interface contain original data; however they are lacking the format of the original report. Caution should be taken when reading/interpreti ng unformatted reports. Name: ? HATTIE MCNAMARA ? Accession #: ? [id number] : ? 1975 (Age: 24) ??F ?Collect Date: ? 11/01/1999 Location: ?Receive Date: ? 11/01/1999 Provider: ?ANEA LELONG CNM Copy to: ?ANEA LELONG CNM ? Specimen/Source: ?Industrial Accountant ThinPrep Last Menstrual Period: ? GYNECOLOGIC ??CYTOPATHOLOGY ??REPORT Name: HATTIE MCNAMARA Regina ? [facility] : 1975 ?? 24Y F ?Client ID: [id number] SS#: [id number] ? Clinician: LELONG CNM, ANEA ?? Location: [facility] ??Copy to: ?? Specimen: ?Industrial Accountant ThinPrep ? Source: Cervix/Endocervix ?Collected: 10/30/99 ? Received: 11/01/1999 ?LMP: 09/04/99 ? Hormone Therapy: No ? : Yes ?Radiation Therapy: No ?? Post : No ?Chemotherapy: No ?IUD: No ? Prev Abnormal Pap: No ?? Clinical Hx: ?(Blank laureano indicate information not provided on requisition) SPECIMEN ADEQUACY: ? Satisfactory For Evaluation ?? GENERAL CATEGORIZATION: ? WITHIN NORMAL LIMITS ? Reviewed And Electronically Signed By: ? Alber Ricci, CT(ASCP) ? Report Date: ?? 11/07/1999 Training Advisorquest Archived Tests - Final Diagnosis Text Field: Clinical History : ? Document reviewed and electronically signed by: ? Conversion ? Report Date: ??11/07/1999 00:00 End of Report RAUL ATKINSON 11/01/1999 13:3 9 EDT 11/01/1999 13:40 EDT Chrissy Gonzalez CNM PATHOLOGY ORDERABLES Performing Organization Address City/State/[facility] Co de Phone Number RAUL ATKINSON [address] [place] [address] documented in this encounter Visit Diagnoses Not on filedocumented in this encounter
--- OUTSIDE RECORDS SUMMARY | 2024-02-02 12:50 | XMS_ITS | Encounter Summary ---
Author Organization [facility] Address [address] [place] [address] Care Team Providers Care Conveyor Operator Name Role Phone Danny Nagy Primary Care Provider [phone] Reason for Visit * Reason Onset Date Comments Biopsy Results 01/25/2022 Encounter Details Date Type Department Care Team (Late st Contact Info) Description 01/25/2022 Telephone [facility] Surgery [address] [place] [address] Cassy Garsia MD [address] [facility] [address] [place] [address] Biopsy Results Social History Tobacco Use Types Packs/Day Years Used Date Smoking Tobacco: Never Smokeless Tobacco: Never Alcohol Use Standard Drinks/Week Comments Yes 0 (1 standard drink = 0.6 oz pur e alcohol) occasional Sex and Gender Information Value Date Recorded Sex Assigned at Not on file Gender Identity Not on file Sexual Orientation Not on file documented as of this encounter Miscellaneous Notes * Telephone Encounter - Cassy Garsia MD - 01/25/2022 1105 EDT I spoke with Ms. Espinoza by telephone to review the results of her colonoscopy. I removed a tiny polypoid piece of tissue which proved to be hyperplastic. This means she actually does not need anothercolonoscopy for 10 years. She expressed understanding. Cassy Garsia MD documented in this encounter Plan of Treatment Not on file documented as of this encounter Visit Diagnoses Not on filedocumented in this encounter Care Teams Conveyor Operator Relationship Specialty Start Date End Date Danny Nagy [address] [place] [phone] PCP - General Family Medicine - [facility] Medicine 11/15/21 documented as of this encounter
--- OUTSIDE RECORDS SUMMARY | 2024-02-02 12:50 | XMS_ITS | Encounter Summary ---
Author Organization [facility] Address [address] [place] [address] Care Team Providers Care Oracle Business Analyst Name Role Phone Meme Yarbrough NP Primary Care Provider [phone] Danny Nagy Primary Care Provider [phone] Encounter Details Date Type Department Care Team (Late st Contact Info) Description 02/17/2020 Lab Requisition [facility] Pathology & Laboratory Medicine - [address] [address] Heather Funes, [address] [place] [address] Encounter for other general examination [...] Date/Time Associated Diagnosis Comments PAP TEST Today 02/16/2020 14:30 EDT Encounter for other general examination HPV DNA DETECTION WITH GENOTYPING, PCR Today 02/16/2020 14:30 EDT Encounter for other general examination documented in this encounter Results * HUMAN PAPILLOMAVIRUS (HPV) DETECTION-HIGH RISK TYPES (02/16/2020 14:30 EDT) HPV other High Risk types, PCR Negative Negative 03/01/2020 15:31 EDT [facility] Comment:No E6 or E7 mRNA is detected from HPV types 16,18,31,33,35,39,45,51,52,56,58,59,66, and 68 by speeder worker mediated amplification. Papanicolaou smear specimen (specimen) CERVIX UTERI STRUCTURE / Unknown 02/16/2020 14:30 EDT 02/29/2020 10:09 EDT Heather Nick Marin FABRICATOR SPECIAL ITEMS MICROBIOLOGY - GENER AL ORDERABLES [facility] [address] [place] [address] * PAP TEST (02/16/2020 14:30 EDT) Specimens A. Cervix and/or Endocervix , ThinPrep Imaging System with Manual Evaluation 03/01/2020 15:31 [facility] Specimen Adequacy Satisfactory for Evaluation - transformation zone component present 03/01/2020 15:31 [facility] General Categorization Negative for intraepithelial lesion or malignancy 03/01/2020 15:31 [facility] Attestation . 03/01/2020 15:31 [facility] at 1531 Clinical History SEE ORDER COMMEMTNS 03/01/2020 15:31 [facility] HPV The result for the Human Papillomavirus (HPV) Detection-High Risk Types is Negative. No E6 or E7 mRNA is detected from HPV types 16,18,31,33,35,39 ,45,51,52,56,58,5 9,66, and 68 by speeder worker mediated amplification.Stephany ting was performed on specimen [id number] and was resulted on 03/01/2020 1423 EDT by KAILA, LAB INSTRUMENT RESULTS IN 03/01/2020 15:31 T [facility] Scanned Images 03/01/2020 15:31 T [facility] Papanicolaou smear specimen (specimen) CERVIX UTERI STRUCTURE / Unknown 02/16/2020 14:30 EDT 02/17/2020 14:00 EDT Heather Nick DupontMarin FABRICATOR SPECIAL ITEMS PATHOLOGY ORDERABLES [facility] [address] [place] [address] documented in this encounter Visit Diagnoses Diagnosis Encounter for other general examination documented in this encounter Care Teams Oracle Business Analyst Relationship Specialty Start Date End Date Meme Yarbrough NP PCP - General 01/01/16 11/14/21 Danny Nagy [address] [place] [phone] PCP - General Family Medicine - [facility] 11/15/21 documented as of this encounter
--- OUTSIDE RECORDS SUMMARY | 2024-02-02 12:50 | XMS_ITS | Encounter Summary ---
Author Organization [facility] Address [address] [place] [address] Care Team Providers Care Real Estate Officer Name Role Phone Danny Nagy Primary Care Provider [phone]- [phone] Encounter Details Date Type Department Care Team (Late st Contact Info) Description 04/27/2022 Lab Requisition [facility] Pathology & Laboratory Medicine - [address] [address] Bharti Leung MD [address] [place] [address] [place] [phone] Encounter for other general examination Social History [...] Date/Time Associated Diagnosis Comments PAP TEST Today 04/26/2022 13:40 EDT Encounter for other general examination HPV DNA DETECTION WITH GENOTYPING, PCR Today 04/26/2022 13:40 EDT Encounter for other general examination documented in this encounter Results * HUMAN PAPILLOMAVIRUS (HPV) DETECTION-HIGH RISK TYPES (04/26/2022 13:40 EDT) HPV other High Risk types, PCR Negative Negative 05/01/2022 22:44 [facility] Comment:No E6 or E7 mRNA is detected from HPV types 16,18,31,33,35,39,45,51,52,56,58,59,66, and 68 by tree tapping laborer mediated amplification. Papanicolaou smear specimen (specimen) CERVIX UTERI STRUCTURE / Unknown 04/26/2022 13:40 EDT 05/01/2022 9:30 EDT Bharti Leung MD MICROBIOLOGY - GENER AL ORDERABLES [facility] [address] [place] [address] * PAP TEST (04/26/2022 13:40 EDT) Specimens A. Cervix and/or Endocervix , ThinPrep Imaging System with Manual Evaluation 05/01/2022 22:44 [facility] Specimen Adequacy Satisfactory for Evaluation - transformation zone component present 05/01/2022 22:44 [facility] General Categorization Negative for intraepithelial lesion or malignancy 05/01/2022 22:44 [facility] Attestation . 05/01/2022 22:44 [facility] at 2244 Clinical History See below 05/01/20 22:44 [facility] HPV The result for the Human Papillomavirus (HPV) Detection-High Risk Types is Negative. No E6 or E7 mRNA is detected from HPV types 16,18,31,33,35,39 ,45,51,52,56,58,5 9,66, and 68 by tree tapping laborer mediated amplification.Stephany ting was performed on specimen [id number] and was resulted on 05/01/2022 1819 EDT by KAILA, LAB INSTRUMENT RESULTS IN 05/01/2022 22:44 [facility] Performing Lab [facility] 05/01/2022 22:44 [facility] Scanned Images 05/01/2022 22:44 [facility] Papanicolaou smear specimen (specimen) CERVIX UTERI STRUCTURE / Unknown 04/26/2022 13:40 EDT 04/27/2022 11:13 EDT Bharti Leung MD PATHOLOGY ORDERABLES [facility] [address] [place] [address] documented in this encounter Visit Diagnoses Diagnosis Encounter for other general examination documented in this encounter Care Teams Real Estate Officer Relationship Specialty Start Date End Date Danny Nagy [address] [place] [address] PCP - General Family Medicine - Hospital Medicine 11/15/21 documented as of this encounter
--- OUTSIDE RECORDS SUMMARY | 2024-02-02 12:50 | XMS_ITS | Encounter Summary ---
Author Organization [facility] Address [address] [place] [address] Care Team Providers Care Dandy Tender Name Role Phone Meme Yarbrough SIZE ROLLER OPERATOR Primary Care Provider [phone] Encounter Details Date Type Department Care Team (Late st Contact Info) Description 01/11/2017 Results Only [facility] [phone] Anthony Funes, [facility] [address] [place] [address] [place] [address] Social History Tobacco Use Types [...] Diagnosis Comments PAP TEST- RESULT ONLY Routine 01/11/2017 0:00 EDT documented in this encounter Results * PAP TEST- RESULT ONLY (01/11/2017 0:00 EDT) Pathology Report: CYTOPATHOLOGY REPORT Reports generated via electronic interface contain original data; however they are lacking the format of the original report. Caution should be taken when reading/interpreti ng unformatted reports. Name: ? HATTIE MCNAMARA ? Accession #: ? [id number] : ? 1975 (Age: 41) ??F ?Collect Date: ? 01/11/2017 Location: ? [facility] ? Receive Date: ? 01/14/2017 Provider: ?ANTHONY FUNES HOT MIX OPERATOR Copy to: ?MEME YARBROUGH SIZE ROLLER OPERATOR ? Specimen/Source: ?Pap Test, Cervix, ThinPrep Imaging System with manual evaluation Last Menstrual Period: ? 12/13/2015 Previous Gynecologic Pathology: ? SHILPI II-III: 2012 Treatment History: ? LEEP Infection History: ? Neg for HPV: 2015 ? SPECIMEN ADEQUACY ? Satisfactory for Evaluation - transformation zone component present GENERAL CATEGORIZATION ? Negative for Intraepithelial Lesion or Malignancy ? Document reviewed and electronically signed by: ? GUSTAVO Sandoval(ASCP) ? Report Date: ??01/24/2017 13:[address] [facility] 01/11/2017 01/14/2017 Anthony Funes HOT MIX OPERATOR PATHOLOGY ORDERABLES [facility] [address] [place] [address] documented in this encounter Visit Diagnoses Not on filedocumented in this encounter Care Teams Dandy Tender Relationship Specialty Start Date End Date Meme Yarbrough NP PCP - General 01/01/16 11/14/21 documented as of this encounter
--- OUTSIDE RECORDS SUMMARY | 2024-02-02 12:50 | XMS_ITS | Encounter Summary ---
Author Organization [facility] Address [address] [place] [address] Care Team Providers Care Title I Assistant Name Role Phone Lance Melendrez Primary Care Provider Unavailab le Encounter Details Date Type Department Care Team (Late st Contact Info) Description 11/25/2014 Results Only [facility] [phone] Lance Melendrez PA Social History Tobacco Use Types Packs/Day Years [...] Diagnosis Comments PAP TEST- RESULT ONLY Routine 11/25/2014 0:00 EDT documented in this encounter Results * PAP TEST- RESULT ONLY (11/25/2014 0:00 EDT) Pathology Report: CYTOPATHOLOGY REPORT Reports generated via electronic interface contain original data; however they are lacking the format of the original report. Caution should be taken when reading/interpreti ng unformatted reports. Name: ? HATTIE MCNAMARA ? Accession #: ? [id number] ? : ? 1975 (Age: 39) ??F ?Collect Date: ? 11/25/2014 ? Location: ? [facility] ? Receive Date: ? 11/26/2014 ? Provider: LANCE STALLINGS Copy to: ? Final Report SPECIMEN ADEQUACY ? Satisfactory for Evaluation - transformation zone component present GENERAL CATEGORIZATION ? Negative for Intraepithelial Lesion or Malignancy ?? Last Menstrual Period: 11/14/14 Hormonal/Contracep tive status: Yes Specimen/Source: ??Pap Test, Cervix/Endocervix, ThinPrep Imaging System with manual evaluation Document reviewed and electronically signed by: ? GUSTAVO Reyes(ASCP) ? Report ??Date: 12/06/2014 10:51 HPV with Pap Test ? Date Ordered: ? 12/06/2014 ? Status: ?? Signed Out ?Date Complete: ? 12/08/2014 ? By: ??System Interface ? Date Reported: ? 12/08/2014 ? Interpretation RESULT: Negative for HPV. No E6 or E7 mRNA is detected from HPV types 16,18,31,33,35, 39,45,51,52,56,58, 59,66, and 68 by accounts payable lead mediated amplification. Comments Document reviewed and electronically signed by: ? System Interface ? Report date: 12/08/2014 By the signature above, the attending physician certifies that he/she has personally conducted a gross and/or microscopic examination of the described specimens and rendered or confirmed the above diagnosis. End of Report [facility] 11/25/2014 11/26/2014 Lance STALLINGS PATHOLOGY ORDERABLES [facility] [address] [place] [address] documented in this encounter Visit Diagnoses Not on filedocumented in this encounter Care Teams Title I Assistant Relationship Specialty Start Date End Date Lance Melendrez PA PCP - General 09/22/12 12/31/15 documented as of this encounter
--- OUTSIDE RECORDS SUMMARY | 2024-02-02 12:50 | XMS_ITS | Encounter Summary ---
Author Organization [facility] Address [address] [place] [address] Care Team Providers Care Tip Length Checker Name Role Phone Meme Yarbrough DESIGN CELL ENGINEER Primary Care Provider [phone] Encounter Details Date Type Department Care Team (Late st Contact Info) Description 01/16/2018 Results Only [facility] [phone] Anthony Funes, [facility] [address] [place] [address] [place] [address] Social History Tobacco Use Types [...] Diagnosis Comments PAP TEST- RESULT ONLY Routine 01/16/2018 0:00 EDT documented in this encounter Results * PAP TEST- RESULT ONLY (01/16/2018 0:00 EDT) Pathology Report: CYTOPATHOLOGY REPORT Reports generated via electronic interface contain original data; however they are lacking the format of the original report. Caution should be taken when reading/interpreti ng unformatted reports. Name: ? HATTIE MCNAMARA ? Accession #: ? [id number] : ? 1975 (Age: 42) ??F ?Collect Date: ? 01/16/2018 Location: ? [facility] ? Receive Date: ? 01/20/2018 Provider: ?ANTHONY FUNES PROCESS CONTROL ENGINEER Copy to: ? Specimen/Source: ?Pap Test, Cervix, ThinPrep Imaging System with manual evaluation Last Menstrual Period: ? 01/06/2018 Hormonal/Contracep tive Status: ? Oral contraceptives Previous Gynecologic Pathology: ? SHILPI II-III: 2012 ? SPECIMEN ADEQUACY ? Satisfactory for Evaluation - transformation zone component present GENERAL CATEGORIZATION ? Negative for Intraepithelial Lesion or Malignancy ? Document reviewed and electronically signed by: ? GUSTAVO Sandoval(ASCP) ? Report Date: ??01/31/2018 17:06 End of Report [facility] 01/16/2018 01/20/2018 Anthony Funes PROCESS CONTROL ENGINEER PATHOLOGY ORDERABLES Performing Organization Address City/State/[facility] Co de Phone Number [facility] [address] [place] [address] documented in this encounter Visit Diagnoses Not on filedocumented in this encounter Care Teams Tip Length Checker Relationship Specialty Start Date End Date Meme Yarbrough NP PCP - General 01/01/16 11/14/21 documented as of this encounter
--- OUTSIDE RECORDS SUMMARY | 2024-02-02 12:50 | XMS_ITS | Encounter Summary ---
Author Organization [facility] Address [address] [place] [address] Care Team Providers Care Sane Nurse Name Role Phone Lance Melendrez Primary Care Provider Unavailab le Encounter Details Date Type Department Care Team (Late st Contact Info) Description 11/19/2013 Results Only [facility] Laboratory Services - [facility] ([facility]) [address] [place] [id number] Lance Melendrez PA Social History Tobacco Use [...] Diagnosis Comments PAP TEST- RESULT ONLY Routine 11/19/2013 0:00 EDT documented in this encounter Results * PAP TEST- RESULT ONLY (11/19/2013 0:00 EDT) Pathology Report: CYTOPATHOLOGY REPORT Reports generated via electronic interface contain original data; however they are lacking the format of the original report. Caution should be taken when reading/interpreti ng unformatted reports. Name: ? HATTIE MCNAMARA ? Accession #: ? [id number] ? : ? 1975 (Age: 38) ??F ?Collect Date: ? 11/19/2013 ? Location: ? [facility] ? Receive Date: ? 11/23/2013 ? Provider: LANCE STALLINGS Copy to: ? Final Report SPECIMEN ADEQUACY ? Satisfactory for Evaluation - transformation zone component present GENERAL CATEGORIZATION ? Epithelial Cell Abnormality INTERPRETATION ? Squamous Cell Abnormality - Atypical squamous cells, undetermined significance (ASC-US). EDUCATIONAL NOTES/RECOMMENDATI ONS ? [facility] recommends following ASCCP's 2012 Updated Consensus Guidelines for the Management of Abnormal Cervical Cancer Screening Tests and Cancer Precursors (JLGTD, 2013; 17(5):S1-S27). ??Consensus guidelines are available online at www.asccp.org. Last Menstrual Period: unknown Hormonal/Contracep tive status: Yes Previous Gynecologic Pathology: SHILPI III: Hx HPV: + 2008 ASC-US: 2003 Specimen/Source: ??Pap Test, Cervix/Endocervix, ThinPrep Imaging System with manual evaluation Document reviewed and electronically signed by: ? ENEIDA GARVEY MD ? Report ??Date: 12/01/2013 17:10 HPV with Pap Test ? Date Ordered: ? 12/01/2013 ? Status: ?? Signed Out ?Date Complete: ? 12/03/2013 ? By: ??System Interface ? Date Reported: ? 12/03/2013 ? Interpretation RESULT: Negative for HPV. No E6 or E7 mRNA is detected from HPV types 16,18,31,33,35, 39,45,51,52,56,58, 59,66, and 68 by forming machine operator mediated amplification. Comments Document reviewed and electronically signed by: ? System Interface ? Report date: 12/03/2013 By the signature above, the attending physician certifies that he/she has personally conducted a gross and/or microscopic examination of the described specimens and rendered or confirmed the above diagnosis. End of Report [facility] 11/19/2013 11/23/2013 Lance STALLINGS PATHOLOGY ORDERABLES Performing Organization Address City/State/[facility] Co de Phone Number [facility] [address] [place] [address] documented in this encounter Visit Diagnoses Not on filedocumented in this encounter Care Teams Sane Nurse Relationship Specialty Start Date End Date Lance Melendrez PA PCP - General 09/22/12 12/31/15 documented as of this encounter
--- OUTSIDE RECORDS SUMMARY | 2024-02-02 12:50 | XMS_ITS | Encounter Summary ---
Author Organization [facility] Address [address] [place] [address] Care Team Providers Care Chief Of Party Name Role Phone Danny Nagy Primary Care Provider [phone] Reason for Visit * Reason Onset Date Comments Colonoscopy 11/29/2021 Encounter Details Date Type Department Care Team (Late st Contact Info) Description 11/29/2021 Telephone [facility] [address] [place] [address] Cassy Garsia MD [address] [facility] [address] [place] [address] Colonoscopy Social History Tobacco Use Types Packs/Day Years [...] encounter Miscellaneous Notes * Telephone Encounter - Kalyani Campos - 11/29/2021 1336 EDT Colonoscopy for patient is scheduled for January 15. Please documented in this encounter Plan of Treatment Not on file documented as of this encounter Visit Diagnoses Not on filedocumented in this encounter Care Teams Chief Of Party Relationship Specialty Start Date End Date Danny Nagy [address] [place] [address] PCP - General Family Medicine - [facility] Medicine 11/15/21 documented as of this encounter
--- OUTSIDE RECORDS SUMMARY | 2024-02-02 12:50 | XMS_ITS | Encounter Summary ---
Author Organization [facility] Address [address] [place] [address] Care Team Providers Care Burn Out Tender Lace Name Role Phone Lance Melendrez Primary Care Provider Unavailab le Encounter Details Date Type Department Care Team (Late st Contact Info) Description 11/12/2012 Results Only [facility] Laboratory Services - [facility] ([facility]) [address] [place], [place] [address] Naun Horn MD [address] [facility] [place] [address] Social History Tobacco Use Types Packs/Day Years Used Date Smoking Tobacco: Never Assessed Sex and Gender Information Value Date Recorded Sex Assigned at Not on file Gender Identity Not on file Sexual Orientation Not on file documented as of this encounter Plan of Treatment Not on file documented as of this encounter Procedures Procedure Name Priority Date/Time Associated Diagnosis Comments SURGICAL PATHOLOGY Routine 11/12/2012 8:23 EDT documented in this encounter Results * SURGICAL PATHOLOGY (11/12/2012 8:23 EDT) Pathology Report: SURGICAL PATHOLOGY REPORT Reports generated via electronic interface contain original data; however they are lacking the format of the original report. Caution should be taken when reading/interpreti ng unformatted reports. Name: ? HATTIE MCNAMARA ? Accession #: ? [id number] ? : ? 1975 (Age: 37) ??F ? Collect Date: ? 11/12/2012 ? Location: ? [facility] ? Receive Date: ? 11/13/2012 ? Provider: NAUN HORN MD Copy to: LANCE STALLINGS ? Final Pathologic Diagnosis: ? Cervix, LEEP excision: 1. 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 ? - High grade dysplasia extends into endocervical glands. - Endocervical and ectocervical margins negative for dysplasia. ? 2. ?? Acute and chronic cervicitis with reactive epithelial changes. ?? Document reviewed and electronically signed by: STEFAN GIL MD Report ??Date: 11/14/2012 14:29 By the signature above, the attending physician certifies that he/she has personally conducted a gross and/or microscopic examination of the described specimens and rendered or confirmed the above diagnosis. Specimen(s) Received: ? LEEP ectocervix Clinical History: ? SHILPI II-III on colpo biopsy 10/2012; LMP: 10/28/12 Gross Description: ? Received in formalin labelled Hattie Mcnamara and cx is a 1.7 x 1.5 cm unoriented, ovoid portion of cervix with cauterized margins excised to a depth of 0.9 cm. ??On one aspect this specimen is surfaced by a linton-purple, wrinkled ectocervical mucosa and has a central 0.6 cm patent os. ??Surrounding the os the mucosa is linton-pink and slightly granular. ??The ectocervical margins are inked black and the endocervical margins are inked blue. ??The specimen is radially sectioned in a clockwise fashion and entirely submitted in cassettes (1) through (7). ??(Axel Slade)/kmm End of Report [facility] 11/12/2012 8:23 EDT 11/13/2012 8:23 EDT Naun Horn MD PATHOLOGY ORDERABLES Performing Organization Address City/State/[facility] Co de Phone Number [facility] [address] [place] [address] documented in this encounter Visit Diagnoses Not on filedocumented in this encounter Care Teams Burn Out Tender Lace Relationship Specialty Start Date End Date Lance Melendrez PA PCP - General 09/22/12 12/31/15 documented as of this encounter
--- OUTSIDE RECORDS SUMMARY | 2024-02-02 12:50 | XMS_ITS | Referral Summary ---
Author Organization [facility] Address [address] [place] [address] Care Team Providers Care Systems Auditor Name Role Phone Danny Nagy Primary Care Provider [phone] Allergies Active Allergy Reactions Criticality Noted Date Comments Penicillins Rash 11/29/2021 Sulfa (Sulfonamide Antibiotics) Rash 11/19 Medications Medication Sig Dispensed Refills Start Date End Date Status UNKNOWN TO PATIENT control pill Active Active Problems Problem Noted Date Diagnosed Date Bright red blood per rectum 11/29/2021 Social History Tobacco Use Types Packs/Day Years Used Date Smoking Tobacco: Never Smokeless Tobacco: Never Alcohol Use Standard Drinks/Week Comments Yes 0 (1 standard drink = 0.6 oz pur e alcohol) occasional Sex and Gender Information Value Date Recorded Sex Assigned at Not on file Gender Identity Not on file Sexual Orientation Not on file Last Filed Vital Signs Vital Sign Reading Time Taken Comments Blood Pressure 113/46 01/15/2022 1256 EDT Pulse 64 11/29/2021 1257 EDT Temperature 37.2 ??C (98.9 ??F) 01/15/2022 1019 EDT Respiratory Rate 14 01/15/2022 1256 EDT Oxygen Saturation 97% 01/15/2022 1256 EDT Inhaled Oxygen Concentration - - Weight 83 kg (183 lb) 01/15/2022 1019 EDT Height 160 cm (5' 3) 01/15/2022 1019 EDT Body Mass Index 32.42 01/15/2022 1019 EDT Plan of Treatment Not on file Procedures Procedure Name Priority Date/Time Associated Diagnosis Comments COLONOSCOPY Routine 01/15/2022 11:00 EDT Bright red blood per rectum from Last 3 Months or Most Recently Relevant to Health Maintenance Results * COLONOSCOPY (01/15/2022 11:00 EDT) Anatomical Region Laterality Modality Endoscopy Narrative 01/15/2022 11:00 EDT [facility] ?? [address], [place], [place] [address] ?? Patient Name ? HATTIE MCNAMARA Date of ? 1975 Record Number ? [id number] Date/Time of Procedure ?01/15/2022, 11:00:00 AM Endoscopist ?Cassy Garsia ?? Nurse Leader ? Referring Physician(s) ?? Huy Smith M.D. Anesthesiologist ? PROCEDURE PERFORMED: COLONOSCOPY - biopsy INDICATIONS FOR EXAMINATION: screening Instruments: ? [facility]-[id number] ([id number]) Medications: ?Fentanyl 150 mcg, Versed 8 mg [...] Cassy Garsia MD GI PROCEDURE ORDERAB LES from Last 3 Months or Most Recently Relevant to Health Maintenance Care Teams Systems Auditor Relationship Specialty Start Date End Date Danny Nagy [address] [place] [phone] PCP - General Family Medicine - Hospital Medicine 11/15/21
--- OUTSIDE RECORDS SUMMARY | 2024-02-02 12:50 | XMS_ITS | Encounter Summary ---
Author Organization [facility] Address [address] [place] [address] Care Team Providers Care Enterprise Engineer Name Role Phone Mounika Melendrez Primary Care Provider Unavailab le Encounter Details Date Type Department Care Team (Latest Contact Info) Description 11/19/2013 7:53 EDT - 11/19/2013 23:59 EDT Hospital Encounter [address] [address] Unknown, Provider, Discharge Disposition: Home or Self Care Social History Tobacco Use Types Packs/Day Years Used Date Smoking Tobacco: Never Assessed Sex and Gender Information Value Date Recorded Sex Assigned at Not on file Gender Identity Not on file Sexual Orientation Not on file documented as of this encounter Discharge Disposition Disposition Code Departure Means Destination Home or Self Penitentiary documented in this encounter Plan of Treatment Not on file documented as of this encounter Visit Diagnoses Not on filedocumented in this encounter Care Teams Enterprise Engineer Relationship Specialty Start Date End Date Mounika Melendrez PA PCP - General 09/22/12 12/31/15 documented as of this encounter
--- OUTSIDE RECORDS SUMMARY | 2024-02-02 12:50 | XMS_ITS | Encounter Summary ---
Author Organization [facility] Address [address] [place] [address] Care Team Providers Care Electrical Troubleshooter Name Role Phone Lance Melendrez Primary Care Provider Unavailab le Encounter Details Date Type Department Care Team (Late st Contact Info) Description 04/27/2013 Results Only [facility] Laboratory Services - [facility] [place] [address] [place] [address] [phone] Lance Melendrez PA Social History Tobacco Use [...] Diagnosis Comments PAP TEST- RESULT ONLY Routine 04/27/2013 0:00 EDT documented in this encounter Results * PAP TEST- RESULT ONLY (04/27/2013 0:00 EDT) Pathology Report: CYTOPATHOLOGY REPORT Reports generated via electronic interface contain original data; however they are lacking the format of the original report. Caution should be taken when reading/interpreti ng unformatted reports. Name: ? HATTIE MCNAMARA ? Accession #: ? [id number] ? : ? 1975 (Age: 38) ??F ?Collect Date: ? 04/27/2013 ? Location: ? [facility] ? Receive Date: ? 04/28/2013 ? Provider: LANCE STALLINGS Copy to: ? Final Report SPECIMEN ADEQUACY ? Satisfactory for Evaluation - transformation zone component present GENERAL CATEGORIZATION ? Negative for Intraepithelial Lesion or Malignancy ?? Last Menstrual Period: unknown Hormonal/Contracep tive status: Yes: Levonorgestrel Eth Estradiol Treatment History: Colposcopy: 11/03/12 LEEP: 11/12/12 Specimen/Source: ??Pap Test, Cervix/Endocervix, ThinPrep Imaging System with manual evaluation Document reviewed and electronically signed by: ? GUSTAVO Sandoval(ASCP) ? Report ??Date: 05/01/2013 13:55 HPV with Pap Test ? Date Ordered: ? 04/30/2013 ? Status: ?? Signed Out ?Date Complete: ? 05/05/2013 ? By: ??System Interface ? Date Reported: ? 05/05/2013 ? Interpretation RESULT: Negative for HPV. No E6 or E7 mRNA is detected from HPV types 16,18,31,33,35, 39,45,51,52,56,58, 59,66, and 68 by anthropology lecturer mediated amplification. Comments Document reviewed and electronically signed by: ? System Interface ? Report date: 05/05/2013 By the signature above, the attending physician certifies that he/she has personally conducted a gross and/or microscopic examination of the described specimens and rendered or confirmed the above diagnosis. End of Report [facility] 04/27/2013 04/28/2013 Lance STALLINGS PATHOLOGY ORDERABLES [facility] [address] [place] [address] documented in this encounter Visit Diagnoses Not on filedocumented in this encounter Care Teams Electrical Troubleshooter Relationship Specialty Start Date End Date Lance Melendrez PA PCP - General 09/22/12 12/31/15 documented as of this encounter
--- OUTSIDE RECORDS SUMMARY | 2024-02-02 12:50 | XMS_ITS | Encounter Summary ---
Author Organization [facility] Address [address] [place] [address] Care Team Providers Care Head Golf Coach Name Role Phone Danny Nagy Primary Care Provider +1- [phone] Encounter Details Date Type Department Care Team (Late st Contact Info) Description 01/14/2022 Prep for Procedure [facility] Endoscopy [address] [place], [place] [id number] Cassy Garsia MD [address] [facility] [address] [place] [phone] Social History Tobacco Use Types Packs/Day Years [...] on filedocumented in this encounter Care Teams Head Golf Coach Relationship Specialty Start Date End Date Danny Nagy [address] [place] [phone] PCP - General Family Medicine - [facility] Medicine 11/15/21 documented as of this encounter
--- OUTSIDE RECORDS SUMMARY | 2024-02-02 12:50 | XMS_ITS | Encounter Summary ---
Author Organization [facility] Address [address] [place] [address] Care Team Providers Care Production Cost Estimator Name Role Phone Lance Melendrez Primary Care Provider Unavailab le Encounter Details Date Type Department Care Team (Late st Contact Info) Description 10/24/2012 Results Only [facility] Laboratory Services - [facility] [place] [address] [place], [place] [address] Naun Horn MD [address] [facility] [place] [address] Social History Tobacco Use Types [...] Date/Time Associated Diagnosis Comments SURGICAL PATHOLOGY Routine 10/24/2012 7:18 EDT documented in this encounter Results * SURGICAL PATHOLOGY (10/24/2012 7:18 EDT) Pathology Report: SURGICAL PATHOLOGY REPORT Reports generated via electronic interface contain original data; however they are lacking the format of the original report. Caution should be taken when reading/interpreting unformatted reports. Name: ? HATTIE MCNAMARA ? Accession #: ? [id number] ? : ? 1975 (Age: 37) ??F ? Collect Date: ? 10/24/2012 ? Location: ? [facility] ? Receive Date: ? 10/25/2012 ? Provider: NAUN HORN MD Copy to: LANCE STALLINGS ? Final Pathologic Diagnosis: ? 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 ??See comment. Comment: ? While the majority of the biopsy consists of ectocervical mucosa with acute and chronic cervicitis and reactive epithelial changes, deeper levels show a focus of squamous atypia with cells exhibiting nuclear hyperchromasia, increased nuclear to cytoplasmic ratios, decreased maturation and increased mitotic activity. 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 ??(Dr. Weber)/jerri ? Immunohistochemical staining was performed on this case to further characterize the lesion. ??Positive and negative controls stained appropriately. Block ?Antibody (Clone) ? Result ? 1 ?P16 (E6H4TM, [employer]) ? Full thickness, diffuse staining ? MIB-1(DAKO) (MIB-1, [employer]) ? Full thickness staining ? NOTE: ??One or more of the reagents used in immunohistochemical testing in this case may not have been cleared or approved by the U.S. Food and Drug Administration (FDA). ??The FDA has determined that such clearance or approval is not necessary. ??These tests are used for clinical purposes. ??They should not be regarded as investigational or for research. ??These reagents' performance characteristics have been determined by [facility]. ??This laboratory is certified under the Clinical Laboratory Improvement Amendments of 1988 (CLIA-88) as qualified to perform high complexity clinical laboratory testing. ?? Document reviewed and electronically signed by: JOSE D MCDERMOTT MD Report ??Date: 10/30/2012 16:59 By the signature above, the attending physician certifies that he/she has personally conducted a gross and/or microscopic examination of the described specimens and rendered or confirmed the above diagnosis. Specimen(s) Received: ? 7 o'clock ectocervix Clinical History: ? ASCUS (+)HPV Pap; LMP: 10/07/12 Gross Description: ? Received in formalin labelled Alexis, Hattie and cx 7 o'clock are two white-linton soft tissue fragments measuring 0.3 x 0.2 x 0.2 cm and 0.4 x 0.2 x 0.2 cm as well as a moderate amount of clear mucinous material measuring 0.7 x 0.6 x 0.4 cm. ??The specimen is entirely submitted as (1) following filtration. ??(Tammy Johansen)/[facility] End of Report [facility] 10/24/2012 7:18 EDT 10/25/2012 7:18 EDT Naun Horn MD PATHOLOGY ORDERABLES [facility] [address] [place] [address] documented in this encounter Visit Diagnoses Not on filedocumented in this encounter Care Teams Production Cost Estimator Relationship Specialty Start Date End Date Lance Melendrez PA PCP - General 09/22/12 12/31/15 documented as of this encounter
--- OUTSIDE RECORDS SUMMARY | 2024-02-02 12:50 | XMS_ITS | Encounter Summary ---
Author Organization [facility] Address [address] [place] [address] Care Team Providers Care Fruit Sprayer Name Role Phone Unavailable Primary Care Provider Unavailabl e Encounter Details Date Type Department Care Team (Late st Contact Info) Description 07/20/2010 Results Only [facility] Laboratory Services - [facility] [place] [address] [place] [address] [phone] Lance Melendrez PA Social History Tobacco Use [...] Priority Date/Time Associated Diagnosis Comments CYTOPATHOLOGY Routine 07/20/2010 0:00 EST documented in this encounter Results * CYTOPATHOLOGY (07/20/2010 0:00 EST) Pathology Report: CYTOPATHOLOGY REPORT ? Reports generated via electronic interface contain original data; ? however they are lacking the format of the original report. ? Caution should be taken when reading/interpreti ng unformatted reports. ? Name: ? ANDERS, HATTIE ? Accession #: ? [id number] ? : ? 1975 (Age: 35) ??F ?Collect Date: ? 07/20/2010 ? Location: ? [facility] ? Receive Date: ? 07/24/2010 ? Provider: LANCE GARETH PA ? Copy to: ? Final Report ? SPECIMEN ADEQUACY ? Satisfactory for Evaluation ? - transformation zone component present ? GENERAL CATEGORIZATION ? Negative for Intraepithelial Lesion or Malignancy ? Last Menstural Period: 12/09/10 ? Hormonal/Contracep tive status: Yes: Shilpa ? Previous Gynecologic Pathology: ASC-US: 2004 ? HPV: + 02/09 ? Treatment History: Colposcopy: 2004 ? Specimen/Source: ??Pap Test, Cervix/Endocervix, ThinPrep Imaging System with ? manual evaluation ? Document reviewed and electronically signed by: ? Mayra Valerio, SCT(ASCP) ? Report ??Date: 07/27/2010 16:07 ? HPV with Pap Test ? Date Ordered: ? 07/27/2010 ? Status: ?? Signed Out ?Date Complete: ? 07/31/2010 ? By: ??System Interface ? Date Reported: ? 07/31/2010 ? Interpretation ? RESULT: Positive for one or more of HPV types 16,18,31,33,35,39, 45, ? 51,52,56,58,59, or 68. These high/intermediate risk HPV ? types are associated with dysplasia and some cervical ? cancers. ? Comments ? Document reviewed and electronically signed by: ? System Interface ? Report date: 07/31/2010 ? By the signature above, the attending physician certifies that he/she has ? personally conducted a gross and/or microscopic examination of the described ? specimens and rendered or confirmed the above diagnosis. ? End of Report ? [facility] 07/20/2010 07/24/2010 Lance STALLINGS PATHOLOGY ORDERABLES [facility] [address] [place] [address] documented in this encounter Visit Diagnoses Not on filedocumented in this encounter
--- OUTSIDE RECORDS SUMMARY | 2024-02-02 12:50 | XMS_ITS | Encounter Summary ---
Author Organization [facility] Address [address] [place] [address] Care Team Providers Care Crematory Attendant Name Role Phone Unavailable Primary Care Provider Unavailabl e Encounter Details Date Type Department Care Team (Late st Contact Info) Description 09/11/2012 Results Only [facility] Laboratory Services - [facility] ([facility] [place] [address] [place] [place] [address] [phone] Lance Melendrez PA Social History Tobacco Use [...] Diagnosis Comments PAP TEST- RESULT ONLY Routine 09/11/2012 0:00 EST documented in this encounter Results * PAP TEST- RESULT ONLY (09/11/2012 0:00 EST) Pathology Report: CYTOPATHOLOGY REPORT Reports generated via electronic interface contain original data; however they are lacking the format of the original report. Caution should be taken when reading/interpreti ng unformatted reports. Name: ? HATTIE MCNAMARA ? Accession #: ? [id number] ? : ? 1975 (Age: 37) ??F ?Collect Date: ? 09/11/2012 ? Location: ? [facility] ? Receive Date: ? 09/16/2012 ? Provider: LANCE STALLINGS Copy to: ? Final Report SPECIMEN ADEQUACY ? Satisfactory for Evaluation - transformation zone component present GENERAL CATEGORIZATION ? Epithelial Cell Abnormality INTERPRETATION ? Squamous Cell Abnormality - Atypical squamous cells, undetermined significance (ASC-US). EDUCATIONAL NOTES/RECOMMENDATI ONS ? [facility] recommends following the 2006 Consensus Guidelines for the Management of Women with Abnormal Cervical Cancer Screening Tests (JLGTD, 2007;11(4):201-222 ). ??Consensus guidelines are available online at www.ASCCP.org. Last Menstrual Period: 09/03/2012 Hormonal/Contracep tive status: Control Pills Previous Gynecologic Pathology: HPV: + since 2002 Other: Additional clinical information: negative paps ( ascus) Specimen/Source: ??Pap Test, Cervix/Endocervix, ThinPrep Imaging System with manual evaluation Document reviewed and electronically signed by: ? GISELLE MARTINEZ MD ? Report ??Date: 09/19/2012 14:39 HPV with Pap Test ? Date Ordered: ? 09/18/2012 ? Status: ?? Signed Out ?Date Complete: ? 09/22/2012 ? By: ??System Interface ? Date Reported: ? 09/22/2012 ? Interpretation RESULT: Positive for high or intermediate risk HPV. E6 OR E7 mRNA from one or more types of HPV types 16,18,31, 33,35,39,45,51,52, 56,58,59,66, and 68 is detected by butcher mediated amplification. High and intermediate risk HPV types are associated with most squamous intraepithelial lesions and cervical cancers. Comments Document reviewed and electronically signed by: ? System Interface ? Report date: 09/22/2012 By the signature above, the attending physician certifies that he/she has personally conducted a gross and/or microscopic examination of the described specimens and rendered or confirmed the above diagnosis. End of Report [facility] 09/11/2012 09/16/2012 Lance STALLINGS PATHOLOGY ORDERABLES Performing Organization Address City/State/[facility] Co de Phone Number [facility] [address] [place] [address] documented in this encounter Visit Diagnoses Not on filedocumented in this encounter
--- OUTSIDE RECORDS SUMMARY | 2024-02-02 12:50 | XMS_ITS | Encounter Summary ---
Author Organization [facility] Address [address] [place] [address] Care Team Providers Care Tool Crib Manager Name Role Phone Unavailable Primary Care Provider Unavailabl e Encounter Details Date Type Department Care Team (Late st Contact Info) Description 08/26/2008 Before PRISM Converted Visit ([facility]) [facility] Adult Primary Care - [address] [phone] Unknown, Provider, Social History Tobacco Use Types Packs/Day Years Used Date Smoking Tobacco: Never Assessed Sex and Gender Information Value Date Recorded Sex Assigned at Not on file Gender Identity Not on file Sexual Orientation Not on file documented as of this encounter Plan of Treatment Not on file documented as of this encounter Procedures Procedure Name Priority Date/Time Associated Diagnosis Comments HPV DETECTION, HIGH RISK TYPES Routine 08/26/2008 11:52 EST CYTOPATHOLOGY Routine 08/26/2008 0:00 EST documented in this encounter Results * HUMAN PAPILLOMA VIRUS DNA TEST (08/26/2008 11:52 EST) Specimen Description Cervix, ThinPrep vial [facility] Result Positive for one or more of HPV types 16,18,31,33,35 ,39,45,51,52,5 6,58,59, or 68. These high/intermedi ate risk HPV types are associated with dysplasia and some cervical cancers. [facility] Report Status Final 09/23/2008 [facility] 08/26/2008 11:5 2 EST 09/15/2008 11:52 EST Provider Unknown MD MICROBIOLOGY - GENER AL ORDERABLES [facility] [address] [place] [id number] * CYTOPATHOLOGY (08/26/2008 0:00 EST) Pathology Report: CYTOPATHOLOGY REPORT ? Reports generated via electronic interface contain original data; ? however they are lacking the format of the original report. ? Caution should be taken when reading/interpreti ng unformatted reports. ? Name: ? HATTIE ESPINOZA ? Accession #: ? [id number] ? : ? 1975 (Age: 33) ??F ?Collect Date: ? 08/26/2008 ? Location: ? [facility] ? Receive Date: ? 08/26/2008 ? Provider: ?LANCE GARETH PA ? Copy to: ? Specimen/Source: ?Pap Test, Cervix/Endocervix, ThinPrep Imaging System ? with manual evaluation ? Last Menstrual Period: ? 01/16/09 ? Hormonal/Contracep tive Status: ? Yes: Alesse ? Previous Gynecologic Pathology: ? ASC-US: + ? Treatment History: ? Colposcopy: 2004 ? Other: ? HPVDX - HPV testing requested regardless of diagnosis on current ThinPrep Pap ?? test. ? SPECIMEN ADEQUACY ? Satisfactory for Evaluation ? - transformation zone component present ? GENERAL CATEGORIZATION ? Negative for Intraepithelial Lesion or Malignancy ? Document reviewed and electronically signed by: ? Lynan Sandip, CT(ASCP) ? Report Date: ??09/02/2008 16:11 ? End of Report ? [facility] 08/26/2008 08/26/2008 Lance STALLINGS PATHOLOGY ORDERABLES [facility] [address] [place] [address] documented in this encounter Visit Diagnoses Not on filedocumented in this encounter
--- OUTSIDE RECORDS SUMMARY | 2024-02-02 12:50 | XMS_ITS | Encounter Summary ---
Author Organization [facility] Address [address] [place] [address] Care Team Providers Care Billboard Installer Name Role Phone Unavailable Primary Care Provider Unavailabl e Encounter Details Date Type Department Care Team (Late st Contact Info) Description 04/24/2007 Results Only [facility] - Maple conversion [address] [place] [address] Lance Melendrez PA Social History Tobacco Use [...] Priority Date/Time Associated Diagnosis Comments CYTOPATHOLOGY Routine 04/24/2007 0:00 EDT documented in this encounter Results * CYTOPATHOLOGY (04/24/2007 0:00 EDT) Pathology Report: CYTOPATHOLOGY REPORT Reports generated via electronic interface contain original data; however they are lacking the format of the original report. Caution should be taken when reading/interpreti ng unformatted reports. Name: ? HATTIE MCNAMARA ? Accession #: ? [id number] : ? 1975 (Age: 32) ??F ?Collect Date: ? 04/24/2007 Location: ? [facility] ? Receive Date: ? 04/28/2007 Provider: ?LANCE STALLINGS Copy to: ? Specimen/Source: ?ThinPrep Pap Test, Endocervix, processed on Soft SciencePrep Imaging System, with manual evaluation Last Menstrual Period: ? 04/07/07 Hormonal/Contracep tive Status: ? Yes Previous Gynecologic Pathology: ? HPV: with Bx Treatment History: ? Miscellaneous treatment: Bx Other: ? HPVA - HPV testing requested if ASC-US on the current ThinPrep Pap test. ? SPECIMEN ADEQUACY ? Satisfactory for Evaluation - transformation zone component present GENERAL CATEGORIZATION ? Negative for Intraepithelial Lesion or Malignancy INTERPRETATION ? Reactive cellular changes associated with inflammation present (includes repair). Shift in gloria present suggestive of bacterial vaginosis. ? Document reviewed and electronically signed by: ? REBA FRY MD ? Report Date: ??05/06/2007 14:58 End of Report [facility] 04/24/2007 04/28/2007 Lance STALLINGS PATHOLOGY ORDERABLES Performing Organization Address City/State/[facility] Co de Phone Number [facility] [address] [place] [address] documented in this encounter Visit Diagnoses Not on filedocumented in this encounter
--- OUTSIDE RECORDS SUMMARY | 2024-02-02 12:50 | XMS_ITS | Encounter Summary ---
Author Organization [facility] Address [address] [place] [address] Care Team Providers Care Titrator Name Role Phone Danny Nagy Primary Care Provider +1- [phone] Encounter Details Date Type Department Care Team (Late st Contact Info) Description 09/26/[address] [facility] Pathology & Laboratory Medicine - [address] [address] Bharti Leung MD [address] [place] [address] [place] [phone] Encounter for other general examination Social History [...] Date/Time Associated Diagnosis Comments PAP TEST Today 09/25/2023 12:00 EST Encounter for other general examination HPV DNA DETECTION WITH GENOTYPING, PCR Today 09/25/2023 12:00 EST Encounter for other general examination documented in this encounter Results * HUMAN PAPILLOMAVIRUS (HPV) DETECTION-HIGH RISK TYPES (09/25/2023 12:00 EST) HPV other High Risk types, PCR Negative Negative 10/03/2023 14:41 [facility] Comment:No E6 or E7 mRNA is detected from HPV types 16,18,31,33,35,39,45,51,52,56,58,59,66, and 68 by pattern chain maker supervisor mediated amplification. Pap Test CERVIX UTERI STRUCTURE / Unknown 09/25/2023 12:00 EST 10/02/2023 9:09 EDT Bharti Leung MD MICROBIOLOGY - GENER AL ORDERABLES [facility] [address] [place] [address] * PAP TEST (09/25/2023 12:00 EST) Specimens A. Cervix and/or Endocervix , ThinPrep Imaging System with Manual Evaluation 10/03/2023 14:41 [facility] Specimen Adequacy Satisfactory for Evaluation - transformation zone component present 10/03/2023 14:41 [facility] General Categorization Epithelial Cell Abnormality 10/03/2023 14:41 [facility] Descriptive Diagnosis Squamous Cell Abnormality - Atypical squamous cells, undetermined significance (ASC-US). 10/03/2023 14:41 [facility] Educational Comments [facility] recommends following the ASCCP's management guidelines which may be found at www.asccp.org 10/03/2023 14:41 [facility] Attestation By the signature below, the attending physician certifies that they have personally conducted a gross and/or microscopic examination of the described specimens and rendered or confirmed the above diagnosis. 10/03/2023 14:41 [facility] at 1440 Clinical History See below 10/03/19 14:41 [facility] HPV The result for the Human Papillomavirus (HPV) Detection-High Risk Types is Negative. No E6 or E7 mRNA is detected from HPV types 16,18,31,33,35,3 9,45,51,52,56,58 ,59,66, and 68 by pattern chain maker supervisor mediated amplification.Te sting was performed on specimen [id number] and was resulted on 10/03/2023 1440 EDT by KAILA, LAB INSTRUMENT RESULTS IN 10/03/2023 14:41 EDT [facility] Performing Lab [facility] 10/03/2023 14:41 EDT [facility] Scanned Images 10/03/2023 14:41 EDT [facility] Pap Test CERVIX UTERI STRUCTURE / Unknown 09/25/2023 12:00 EST 09/26/2023 9:34 EST Bhatri Leung MD PATHOLOGY ORDERABLES [facility] [address] [place] [address] documented in this encounter Visit Diagnoses Diagnosis Encounter for other general examination documented in this encounter Care Teams Titrator Relationship Specialty Start Date End Date Danny Nagy [address] [place] [phone] PCP - General Family Medicine - Hospital Medicine 11/15/21 documented as of this encounter
--- OUTSIDE RECORDS SUMMARY | 2024-02-02 12:50 | XMS_ITS | Clinical Summary ---
Author Organization [facility] Address [address] [place] [address] Care Team Providers Care Biomedical Specialist Name Role Phone Danny Nagy Primary Care Provider [phone] Allergies Active Allergy Reactions Criticality Noted Date Comments Penicillins Rash 11/29/2021 Sulfa (Sulfonamide Antibiotics) Rash 11/19 Medications Medication Sig Dispensed Refills Start Date End Date Status UNKNOWN TO PATIENT control pill Active Active Problems Problem Noted Date Diagnosed Date Bright red blood per rectum 11/29/2021 Surgical History Surgery Date Site/Laterality Comments CYST REMOVAL Right right hand WISDOM TOOTH EXTRACTION Medical History Medical History Date Comments Arthritis Asthma Family History Medical History Relation Comments Arthritis Father Early Father High Blood Pressure Father Arthritis Mother Colon Polyps Mother High Blood Pressure Mother High Cholesterol Mother Relation Status Comments Father Mother Social History Tobacco Use Types Packs/Day Years Used Date Smoking Tobacco: Never Smokeless Tobacco: Never Alcohol Use Standard Drinks/Week Comments Yes 0 (1 standard drink = 0.6 oz pur e alcohol) occasional Sex and Gender Information Value Date Recorded Sex Assigned at Not on file Gender Identity Not on file Sexual Orientation Not on file Obstetrics History Last Filed Vital Signs Vital Sign Reading [...] 32.42 01/15/2022 1019 EDT Plan of Treatment Health Maintenance Due Date Last Done Comments Hepatitis C Screen 1975 Hepatitis B Vaccine (1 of 3 - 19+ 3-dose series) 02/20 COVID-19 Vaccine (2022- season) 2023 Colonoscopy (Colon Cancer Screening) Discontinued 12/21 Colorectal Cancer Screening Discontinued Cologuard (Colon Cancer Screening) Discontinued FIT Test (Colon Cancer Screening) Discontinued Sigmoidoscopy (Colon Cancer Screening) Discontinued Procedures Procedure Name Priority Date/Time Associated Diagnosis Comments COLONOSCOPY Routine 01/15/2022 11:00 EDT Bright red blood per rectum from Last 3 Months or Most Recently Relevant to Health Maintenance Results * COLONOSCOPY (01/15/2022 11:00 EDT) Anatomical Region Laterality Modality Endoscopy Narrative 01/15/2022 11:00 EDT [facility] ?? [address] [place] [id number] ?? Patient Name ? HATTIE MCNAMARA Date of ? 1975 Record Number ? [id number] Date/Time of Procedure ?01/15/2022, 11:00:00 AM Endoscopist ?Cassy Garsia ?? Oil Extractor ? Referring Physician(s) ?? Huy Smith M.D. Anesthesiologist ? PROCEDURE PERFORMED: COLONOSCOPY - biopsy INDICATIONS FOR EXAMINATION: screening Instruments: ? [id number] ([id number]) Medications: ?Fentanyl 150 mcg, Versed 8 mg [...] Recently Relevant to Health Maintenance Care Teams Biomedical Specialist Relationship Specialty Start Date End Date Danny Nagy [address] [place] [address] [address] [place] [id number] PCP - General Family Medicine - Hospital Medicine 11/15/21
--- OUTSIDE RECORDS SUMMARY | 2024-02-02 12:50 | XMS_ITS | Encounter Summary ---
Author Organization [facility] Address [address] [place] [address] Care Team Providers Care Air Tube Releaser Name Role Phone Unavailable Primary Care Provider Unavailabl e Encounter Details Date Type Department Care Team (Late st Contact Info) Description 08/09/2011 Results Only [facility] Services - [facility] [place] [address] [place] [address] [phone] Lance Melendrez PA Social History Tobacco Use [...] Diagnosis Comments PAP TEST- RESULT ONLY Routine 08/09/2011 0:00 EST documented in this encounter Results * PAP TEST- RESULT ONLY (08/09/2011 0:00 EST) Pathology Report: CYTOPATHOLOGY REPORT Reports generated via electronic interface contain original data; however they are lacking the format of the original report. Caution should be taken when reading/interpreti ng unformatted reports. Name: ? HATTIE MCNAMARA ? Accession #: ? [id number] ? : ? 1975 (Age: 36) ??F ?Collect Date: ? 08/09/2011 ? Location: ? [facility] ? Receive Date: ? 08/10/2011 ? Provider: LANCE STALLINGS Copy to: ? Final Report SPECIMEN ADEQUACY ? Satisfactory for Evaluation - transformation zone component present GENERAL CATEGORIZATION ? Negative for Intraepithelial Lesion or Malignancy ?? Last Menstural Period: 07/19/11 Hormonal/Contracep tive status: Yes: Henry Previous Gynecologic Pathology: ASC-US: + HPV: + 2010 Treatment History: Colposcopy: Specimen/Source: ??Pap Test, Cervix/Endocervix, ThinPrep Imaging System with manual evaluation Document reviewed and electronically signed by: ? Renetta Oropeza, CT(ASCP) ? Report ??Date: 08/13/2011 15:46 HPV with Pap Test ? Date Ordered: ? 08/13/2011 ? Status: ?? Signed Out ?Date Complete: ? 08/16/2011 ? By: ??System Interface ? Date Reported: ? 08/16/2011 ? Interpretation RESULT: Positive for one or more of HPV types 16,18,31,33,35,39, 45, 51,52,56,58,59, or 68. These high/intermediate risk HPV types are associated with some squamous intraepithelial lesions and cervical cancers. Comments Document reviewed and electronically signed by: ? System Interface ? Report date: 08/16/2011 By the signature above, the attending physician certifies that he/she has personally conducted a gross and/or microscopic examination of the described specimens and rendered or confirmed the above diagnosis. End of Report [facility] 08/09/2011 08/10/2011 Lance STALLINGS PATHOLOGY ORDERABLES Performing Organization Address City/State/ZIP Co pr Phone Number [facility] [address] [phone] documented in this encounter Visit Diagnoses Not on filedocumented in this encounter
--- NOTE | 2024-02-02 12:51 | W.ED.GENAD ---
Discharge Plan Disposition Patient Disposition: Home Condition: Stable Discharge Details Clinical Impression: Pyelonephritis Primary Care Provider: Danny Nagy ED Provider: Sung Parra Home Meds and New Rx's Prescriptions: New levofloxacin 750 mg tablet 750 mg PO DAILY 5 Days Qty: 5 0RF ondansetron 4 mg tablet,disintegrating 4 mg PO Q8H PRNQty: 30 0RF Continued multivit with min-folic acid [Daily Gummies] 200 mcg tablet,chewable See Rx Instructions PO DAILY Patient Comments: 2 tab PO ; DAILY Rx Instructions: 2 tab PO ; DAILY fluocinonide 0.1 % cream 1 applic topical BID-QID PRN (Reason: rash) Qty: 120 2RF glucosamine-chondroitin [Osteo Bi-Flex] 250-200 mg tablet 2 tab PO .QD Rx Instructions: give after food/meal Collagen Skin Renewal 30-833.3 mg tablet 1 tab PO ONCE desonide 0.05 % cream 1 applic TP BID PRN (Reason: eczema) Qty: 60 1RF valacyclovir 1 gram tablet 1,000 mg PO TID Qty: 21 0RF Rx Instructions: Take 1 tablet by mouth three times a day for 7 days Discontinued cephalexin 500 mg tablet 500 mg PO QID Qty: 28 0RF Discharge Instructions Instructions: Levofloxacin (Systemic), Meclizine, Ondansetron, Urinary Tract Infection, Adult ED Additional Instructions: You were seen in the emergency department for your side effects of dizziness nausea and diarrhea to cefpodoxime, these were managed with some meclizine here in the department. The cephalexin should work on your UTI if you want to trial that medicine it has less side effects than the levofloxacin I have prescribed you. If you cannot tolerate the cephalexin you should use the levofloxacin for 5 days. Always take antibiotics with food, always try to stay well-hydrated, we are sending you home with a prescription for nausea medicine to take 20 to 30 minutes before p.o. intake for nausea as needed 3 times per day, have also sent you home with some dizziness medicines and a to go pack of meclizine. Please return to the emergency department for failure to improve symptoms after full course of antibiotics, worsening flank pain, urinary retention, fever, severe abdominal pain. Referrals: Danny Nagy, ASSISTANT IN NURSING [Primary Care Provider] - Discharge Data Discharge Date/Time-TO BE ENTERED AT DEPARTURE: 02/02/24 14:26 HPI General Date/Time Provider Initiated Documentation: 02/02/24 12:37. HPI Narrative: 48 year-old female presents to ED today by POV/ambulating with a chief complaint of treated here days ago for pyelonephritis- with some improvement on cefpodoxime for the past 2 days- but developing side effects to ABX of nausea, dizziness, and was advised by PCP to stop taking it immediately and present to ED. Patient felt her symptoms start to come back with R sided flank pain today, no current dysuria. Quality described as flank pain, no radiation to fever, hematuria, dysuria, straining to pass urine, weakness. Patients nausea improved but dizziness is still intermittent from her perceived side effects. Severity is described as moderate. Palliating factors include nothing specific attempted. Provoking factors include nothing specific. Patient not anticoagulated. Related Data Home Medications ?Medication ?Instructions ?Recorded ?Confirmed multivitamin with minerals-folic See Rx Instructions PO DAILY daily 11/12/18 02/02/24 acid 200 mcg chewable tablet (Daily Gummies) fluocinonide 0.1 % topical cream 1 applic topical BID-QID PRN rash 09/29/21 02/02/24 #120 grams desonide 0.05 % topical cream 1 applic topical BID PRN eczema 02/21/22 02/02/24 #60 grams valacyclovir 1 gram tablet 1,000 mg PO TID #21 tabs 06/24/23 02/02/24 ascorbic acid 30 mg-collagen, 1 tab PO ONCE 11/27/23 02/02/24 hydrolyzed 833.3 mg tablet (Collagen Skin Renewal) glucosamine-chondroitin 250 mg-200 2 tab PO .QD 11/27/23 02/02/24 mg tablet (Osteo Bi-Flex) levofloxacin 750 mg tablet 750 mg PO DAILY 5 days #5 tabs 02/02/24 ondansetron 4 mg disintegrating 4 mg PO Q8H PRN #30 tabs 02/02/24 tablet Previous Rx's ?Medication ?Instructions ?Recorded fluocinonide 0.1 % topical cream 1 applic topical BID-QID PRN rash 09/29/21 #120 grams desonide 0.05 % topical cream 1 applic topical BID PRN eczema 02/21/22 #60 grams valacyclovir 1 gram tablet 1,000 mg PO TID #21 tabs 06/24/23 levofloxacin 750 mg tablet 750 mg PO DAILY 5 days #5 tabs 02/02/24 ondansetron 4 mg disintegrating 4 mg PO Q8H PRN #30 tabs 02/02/24 tablet Allergies Allergy/AdvReac Type Severity Reaction Status Date / Time Penicillins Allergy Intermediate RASH Verified 02/02/24 13:17 Sulfa (Sulfonamide Allergy Intermediate RASH Verified 02/02/24 13:17 Antibiotics) heat sweat Allergy Intermediate hives Uncoded 01/27/24 11:36 General Stated Complaint: Dizzy/Sync ROSEY: 3 Review of Systems All systems reviewed & are unremarkable except as noted in HPI and below Exam Narrative Exam Narrative: GENERAL APPEARANCE: Well-nourished, non-toxic, awake and alert, atraumatic, no acute distress. SKIN: Warm, pink, dry, intact, without rashes/lesions/ulcerations. HEAD: Normocephalic, atraumatic, normal hair distribution for gender/age. EYES: Pupils PERRLA, EOMs intact without nystagmus, normal conjunctiva, no exudates on lids/lashes. ENT: Nares patent, no circumoral cyanosis, no facial swelling NECK: Supple, trachea midline, painless cervical ROM. LUNGS/CHEST: Lungs CTA bilaterally- no rhonchi/rales/wheezes diffusely, non-labored respirations, normal A/P diameter, symmetrical expansion, no chest wall deformity HEART (CV/PV): Regular rate and rhythm without murmur, no peripheral edema, no JVD. ABDOMEN: Soft, non-distended, no guarding, R CVA tenderness to percussion. MSK: Normal ROM, no swelling/deformity to bilateral UEs or LEs, moving all extremities without weakness, no cyanosis, spine midline without tenderness, normal curvature. NEURO: Mental Status AAOx4 - alert to person, place, time, events No facial droop, no forehead involvement. Motor: No focal weakness - strength 5/5 in bilateral UEs and LEs, proximal and distal, symmetric. Sensory: sensation intact to light touch globally. Gait normal: patient ambulated without ataxia into ED room. PSYCH: euthymic, cooperative, pleasant, appropriate speech Course Vital Signs Vital signs: Vital Signs Temperature 36.7 C 02/02/24 12:38 Pulse 64 02/02/24 12:38 Respiratory Rate 16 02/02/24 12:38 Blood Pressure 152/73 H 02/02/24 12:38 Pulse Oximetry 98 02/02/24 12:38 Temperature 36.7 C 02/02/24 12:38 Temperature Source Tympanic 02/02/24 12:38 Pulse 64 02/02/24 12:38 Respiratory Rate 16 02/02/24 12:38 Blood Pressure 152/73 H 02/02/24 12:38 Blood Pressure Position Sitting 02/02/24 12:38 Pulse Oximetry 98 02/02/24 12:38 Oxygen Delivery Method Room Air 02/02/24 12:38 Oxygen Flow Rate 0 02/02/24 12:38 Pain Level 4 02/02/24 12:38 Medical Decision Making This dictation utilizes [id number] dictation software and may contain unedited grammatical errors. 48 year-old female presents to ED today by POV/ambulating with a chief complaint of treated here days ago for pyelonephritis- with some improvement on cefpodoxime for the past 2 days- but developing side effects to ABX of nausea, dizziness, and was advised by PCP to stop taking it immediately and present to ED. Patient felt her symptoms start to come back with R sided flank pain today, no current dysuria. Quality described as flank pain, no radiation to fever, hematuria, dysuria, straining to pass urine, weakness. Patients nausea improved but dizziness is still intermittent from her perceived side effects. Severity is described as moderate. Palliating factors include nothing specific attempted. Provoking factors include nothing specific. Patients' medical history: asthma, cervical dysplasia, hematuria, BPPV. Family and social history: noncontributory. Pertinent exam findings / vital signs include neuro intact, benign cardiopulmonary status, R CVA tenderness to percussion, no abdominal tenderness or peritoneal signs, nontoxic vitals. Differential / pathologies of concern include medication reaction, BPPV, pyelonephritis, UTI. Diagnostic studies of: -CBC, CMP, lactate, procalcitonin, lipase, UA, magnesium. -CBC benign -CMP without [place], no electrolyte disturbance -Magnesium 1.7 will replete with normal p.o. intake -Lactate and procalcitonin negative-do not suspect sepsis -Lipase negative -UA without blood nitrates or leuk esterase Interventions of: -Switched to levofloxacin due to sulfa allergy as Bactrim would have been ideal choice, given meclizine for relief of dizziness. ED Course/Assessment/Plan: 48-year-old female presents with side effects from cefpodoxime for pyelonephritis seen earlier this week took the antibiotic for 2 days with relief of symptoms but is having persistent dizziness in the setting of chronic BPPV. I gave her meclizine for dizziness which was effective. I switched her to levofloxacin due to other antibiotic allergies listed. Advised staying well-hydrated and taking Tylenol and ibuprofen as needed and with strict return criteria for any return of fever, some worsening flank pain despite treatment, weakness, nausea or vomiting, advised to take antibiotics with food always. Findings not consistent with neurologic abnormality, allergic reaction or anaphylaxis, worsening UTI or pyelonephritis, sepsis. Disposition of pyelonephritis. Patient verbalized understanding of the plan and return to ED criteria and engaged in shared decision making. Medical Records Medical records reviewed: Yes I reviewed the patient's medical records. Lab Data Lab results reviewed: Yes I reviewed the patient's lab results. Labs: Laboratory Tests Range/Units 02/02/24 02/02/24 12:48 13:05 WBC (4.4-10.8) 10^3/uL 6.05 RBC (3.93-5.22) 10^6/uL 4.66 Hgb (11.2-15.7) g/dL 14.1 Hct (36.0-46.0) % 41.8 MCV (80-95) fL 90 MCH (27.0-33.0) pg 30.3 MCHC (32.0-36.0) % 33.7 RDW (11.7-14.6) % 12.6 Plt Count (130-400) 10^3/uL 242 MPV (8.0-11.0) fL 9.8 Immature Gran % % 0.3 Neutrophils % % 61.7 Lymphocytes % % 26.0 Monocytes % % 7.1 Eosinophils % % 4.1 Basophils % % 0.8 Nucleated RBC % (0.0-0.3) % 0.0 Absolute Neutrophils (1.2-6.7) 10^3/uL 3.73 Absolute Lymphocytes (1.2-3.4) 10^3/uL 1.57 Absolute Monocytes (0.1-0.8) 10^3/uL 0.43 Absolute Eosinophils (0.0-0.7) 10^3/uL 0.25 Absolute Basophils (0.0-0.2) 10^3/uL 0.05 VBG Lactate (0.6-1.4) mmol/L 0.9 Sodium (136-145) mmol/L 140 Potassium (3.5-5.1) mmol/L 3.8 Chloride (98-107) mmol/L 103 Carbon Dioxide (21.0-32.0) mmol/L 29.0 Anion Gap (3-11) mmol/L 8.0 BUN (7-18) mg/dL 15 Creatinine (0.55-1.02) mg/dL 0.9 Est GFR (CKD-EPI 2020) (mL/min/1.73m2) 78.37 Glucose (74-106) mg/dL 87 Calcium (8.5-10.1) mg/dL 9.3 Magnesium (1.8-2.4) mg/dL 1.7 L Total Bilirubin (0.2-1.0) mg/dL 0.61 AST (15-37) U/L 17 ALT (14-59) U/L 25 Alkaline Phosphatase (46-116) U/L 98 Total Protein (6.4-8.2) g/dL 7.8 Albumin (3.4-5.0) g/dL 4.0 Lipase (16-77) U/L 38 Procalcitonin ng/mL < 0.1 Urine Color (Yellow) Yellow Urine Clarity (Clear) Clear Urine pH (5-8) 6.0 Ur Specific [place] (1.005-1.025) <= 1.005 Urine Protein (Neg-Trace) mg/dL Negative Urine Ketones (Negative) mg/dL Negative Urine Blood (Negative) Negative Urine Nitrite (Negative) Negative Urine Bilirubin (Negative) Negative Urine Urobilinogen (Up to 0.2) mg/dL 0.2 Ur Leukocyte Esterase (Negative) Negative Urine Glucose (Negative) mg/dL Negative Quality:SDOH Health Related Social Needs: Health related social needs risk of homeless PFSH All Active Problems (Updated 02/02/24 @ 14:02 by HAYLIE Caicedo) Pyelonephritis (Acute) Pyelonephritis (Acute) Hematuria (Acute) Hematuria of unknown cause (Acute) Poor balance (Acute) Paresthesia (Acute) Peroneal neuritis (Acute) Pes cavus of both feet (Acute) Achilles tendon contracture, bilateral (Acute) Plantar fasciitis (Acute) Rectal bleeding (Acute) Benign paroxysmal positional vertigo (Acute) Heart murmur (Acute) normal echo 2001 Medical History Personal history of cervical dysplasia SHILPI 2/3 with LEEP in 2012 Normal yearly paps since Left lateral epicondylitis Eczema Herpes zoster (2019) Environmental allergies Asthma intermittent Cellulitis of leg (11/05/12) Chronic rhinitis (04/01/17) Closed fracture of lower leg Fibrocystic disease of breast (11/05/12) Hemorrhoid prolapse (04/18/17) Surgical History Status post LEEP (loop electrosurgical excision procedure) of cervix Cervical Procedure (11/12/12) LEEP; HGSIL Family History Mother Essential hypertension Hyperlipidemia Adopted Father Essential hypertension Hyperlipidemia Sister Gestational diabetes mellitus Grandfather , BLOOD CLOT IN HEART at age 67. No problems noted. Grandmother Personal history of malignant neoplasm BONE Son No problems noted. Social History Smoking/Tobacco Use Status: Never Second Hand Exposure: Yes Smoking risk assessment performed?: Yes Alcohol Intake: current Alcohol Intake frequency: holidays/special occasions only Alcohol type: hard liquor Drug use: Never Substance use type: does not use Household members: spouse Housing: house Communication Needs: None Do you need help understanding health information?: Never Pets and animals: No Sexually active: Yes Do you think of yourself as: straight/heterosexual Current gender identity: female What is your relationship status?: How often do you talk on the phone with friends or family?: twice per week How often do you get together with friends or relatives?: once per week Do you belong to any clubs or organized social groups?: no Panel score (0-1 are the most socially isolated patients): 2 What type of physical activity do you participate in: aerobic and weight lifting Sera/Orthodox: Judaism Seatbelt use: always Helmet use: Yes Helmet use: always Drive intox or ride w/intox local company flatbed truck driver: No Do you feel safe at home: Yes Do you feel safe in your relationship?: Yes History History 3 Para 1 Hx # Term Pregnancies 1 Multiple births Hx # Pregnancies Ectopic pregnancies AB induced Hx Number of Living Children 1 AB spontaneous 2 Past Pregnancies Del. Date GA/Weeks # Preg Succ Route Wgt Sex Labor Lgth Anesthesia Location [facility] 05/28/95 38 No Yes vaginal 2834.952 g Male [place] Delivery Date: 05/28/95 Last Updated by: Jo Baptiste Baby inpatient for 5 days for not eating well/ weight loss.
[2024-02-02 12:56] VITALS: RESP 18
[2024-02-02] MEDS: Meclizine 25 MG TAB PO (13:15)
[2024-02-02] MEDS: Acetaminophen 500 MG TAB 1000 MG PO (13:15)
[2024-02-02] MEDS: Ketorolac 15 MG/ML VIAL IVP (13:15)
[2024-02-02 13:17] LABS: Lactate 0.9 mmol/L (0.6-1.4)
[2024-02-02 13:19] LABS: Bilirubin Negative (Negative); Blood Negative (Negative); Clarity Clear (Clear); Glucose Negative (Negative); Ketones Negative (Negative); Leukocyte Esterase Negative (Negative); Nitrite Negative (Negative); Specific Gravity <= 1.005 (1.005-1.025); Urobilinogen 0.2 mg/dL (Up to 0.2)
[2024-02-02 13:20] LABS: Abs Immature Grans 0.02 10^3/uL (0.0-0.06); Absolute Basophil Count 0.05 10^3/uL (0.0-0.2); Absolute Eosinophil Count 0.25 10^3/uL (0.0-0.7); Absolute Lymphocyte Count 1.57 10^3/uL (1.2-3.4); Absolute Monocyte Count 0.43 10^3/uL (0.1-0.8); Absolute Neutrophil Count 3.73 10^3/uL (1.2-6.7); Basophils % 0.8 %; Eosinophils % 4.1 %; HCT 41.8 % (36.0-46.0); HGB 14.1 g/dL (11.2-15.7); Immature Grans % 0.3 %; MCH 30.3 pg (27.0-33.0); MCHC 33.7 % (32.0-36.0); MCV 90 fL (80-95); MPV 9.8 fL (8.0-11.0); Monocytes % 7.1 %; Neutrophils % 61.7 %; Platelet Count 242 10^3/uL (130-400); RBC 4.66 10^6/uL (3.93-5.22); RDW 12.6 % (11.7-14.6); RDW-SD 41.8 fL; WBC 6.05 10^3/uL (4.4-10.8)
[2024-02-02 13:40] LABS: ALT 25 U/L (14-59); AST 17 U/L (15-37); Alkaline Phosphatase 98 U/L (46-116); BUN 15 mg/dL (7-18); Bilirubin, Total 0.61 mg/dL (0.2-1.0); CREATININE 0.9 mg/dL (0.55-1.02); Calcium 9.3 mg/dL (8.5-10.1); Chloride 103 mmol/L (98-107); Estimated GFR 78.37 (mL/min/1.73m2); Glucose 87 mg/dL (74-106); Lipase 38 U/L (16-77); Magnesium 1.7 mg/dL (1.8-2.4); Potassium 3.8 mmol/L (3.5-5.1); Sodium 140 mmol/L (136-145); Total Protein 7.8 g/dL (6.4-8.2)
[2024-02-02 14:05] LABS: Procalcitonin < 0.1 ng/mL
[2024-02-02 14:24] VITALS: BP 140/74; PULSE 57; RESP 16; TEMP 36.9; O2SAT 100
[2024-02-02] MEDS: Meclizine 25 MG TAB 100 MG PO (14:24)
== END 2024-02-02 14:26 | disposition home or self-care (01) ==
PROVIDERS: Emergency Provider Physician Assistant; PCP Nurse Practitioner Family
DX: N10 Acute pyelonephritis (principal)
CPT/HCPCS: 80053; 83690; 84145; 96374; 99284; 81003; 83605; 83735; 85025; 99283; J1885

== ENCOUNTER 2024-05-28 03:43 | Outpatient (CLI) | payer OTHER, SELFPAY ==
[2024-05-28 11:28] LABS: Hemoglobin A1C 5.5 % (<5.7)
[2024-05-28 12:41] LABS: ALT 23 U/L (14-59); AST 17 U/L (15-37); Albumin 3.8 g/dL (3.4-5.0); Alkaline Phosphatase 98 U/L (46-116); Anion Gap 8.2 mmol/L (3-11); BUN 14 mg/dL (7-18); Bilirubin, Total 0.74 mg/dL (0.2-1.0); CO2 29.8 mmol/L (21.0-32.0); CREATININE 0.8 mg/dL (0.55-1.02); Calcium 8.9 mg/dL (8.5-10.1); Calculated LDL 129 mg/dL (<100); Chloride 105 mmol/L (98-107); Cholesterol 204 mg/dL (<200); Estimated GFR 89.71 (mL/min/1.73m2); Glucose 91 mg/dL (74-106); HDL Cholesterol 64 mg/dL (40-60); Potassium 3.6 mmol/L (3.5-5.1); Sodium 143 mmol/L (136-145); Total Protein 7.6 g/dL (6.4-8.2); Triglyceride 55 mg/dL (<150)
== END 2024-05-28 03:44 | disposition home or self-care (01) ==
LOC: LBO 03:43
PROVIDERS: PCP Nurse Practitioner Family; Visit Provider Nurse Practitioner Family
DX: Z13.220 Encounter for screening for lipoid disorders (principal); Z13.1 Encounter for screening for diabetes mellitus; Z83.79 Family history of other diseases of the digestive system
CPT/HCPCS: 36415; 80053; 80061; 83036

== ENCOUNTER 2024-10-06 14:47 | Outpatient (REF) | payer OTHER, SELFPAY ==
--- NOTE | 2024-10-06 15:20 | PAPFT_PTH ---
PATIENT: Hattie Espinoza LOC: [facility] U#:[id number] AGE/SX: 49/F ROOM: RE10/06/[address]: Bharti Leung MD : 1975 BED: DIS: 10/06/2024 SPEC #: [id number] RECD: 10/06/24 18:00 STATUS: MARGUERITE CHERYLE #: [id number] SANIA: 10/06/24 15:[address]: Sanna HOUGH,[place] DEPT: [facility] Cytology RECD BY: Aline Yates ENTERED: 10/06/24 18:00 SP TYPE: PAPFT OTHR DR: Danny Nagy NP Tissues: 1 - CX/ENDOCX FOR PAP SMEARS Procedures: PAP THIN PREP/UVM Screening HPV DNA PROBE Comments: [id number] (HPV 16 & 18/45)
== END 2024-10-06 14:48 | disposition home or self-care (01) ==
LOC: LBN 14:47
PROVIDERS: PCP Nurse Practitioner Family; Visit Provider Obstetrics & Gynecology
DX: Z12.4 Encounter for screening for malignant neoplasm of cervix (principal); N85.00 Endometrial hyperplasia, unspecified
CPT/HCPCS: 88142; 87624

== ENCOUNTER 2024-10-28 00:50 | Outpatient (CLI) | payer OTHER, SELFPAY ==
--- NOTE | 2024-10-28 07:45 | DI.MAMMO_ITS ---
Exam(s) MAMMO SCREENING EXAM: MAMMO SCREENING CLINICAL HISTORY: screening,Z12.31 TECHNIQUE: Bilateral full field digital CC and MLO mammographic images were obtained with 3D tomosyn thesis and utilizing computer aided detection (CAD). COMPARISON: Available for comparison. FINDINGS: Masses/Architectural Distortion: No suspicious masses or areas of architectural distortion are presen t. Microcalcifications: No suspicious pleomorphic-type are seen. Skin Thickening/Nipple Retraction: None. IMPRESSION: 1. No significant interval change with no specific features of malignancy noted. 2. Unless there is more urgent need, screening mammography is recommended, as per [employer] guidelines. BI-RADS Category 1 - Negative Breast Density - Category B - Scattered areas of fibroglandular density Breast density category C or D implies that the patient has dense breast tissue. Dense breast tissue is very common and is not abnormal but dense breast tissue can make it harder to find cancer on a ma mmogram. Also, dense breast tissue may increase their breast cancer risk. This information about the result of the mammogram report was provided to the patient to raise their awareness. Use this report when you speak with the patient about their risks for breast cancer, which includes their family hist ory. At that time, you may recommend for more screening tests (Ultrasound or MRI) as they might be us eful based on their risk. A negative radiographic report should not delay biopsy if a dominant or clinically suspicious mass is present. Up to ten percent of cancers are not identified on mammography. A negative report may reinforce clinical impression. Adenosis and dense breasts may obscure an underlying neoplasm. False positive reports average 6 to 10%. Patient will receive a letter notifying them of these results.
== END 2024-10-28 01:10 ==
LOC: DI 00:50
PROVIDERS: PCP Nurse Practitioner Family; Visit Provider Obstetrics & Gynecology
DX: Z12.31 Encounter for screening mammogram for malignant neoplasm of breast (principal); R92.323 Mammographic fibroglandular density, bilateral breasts
CPT/HCPCS: 77063; 77067

== ENCOUNTER 2024-12-26 10:49 | Outpatient (REF) | payer OTHER, SELFPAY ==
[2024-12-26 16:30] LABS: Bilirubin Negative (Negative); Blood Moderate (Negative); Clarity Clear (Clear); Glucose Negative (Negative); Ketones Negative (Negative); Leukocyte Esterase Negative (Negative); Nitrite Negative (Negative); Urobilinogen 0.2 mg/dL (Up to 0.2)
[2024-12-26 16:43] LABS: Bacteria Rare HPF (Negative); Epithelial Cells Few HPF (Negative); RBC 20-50 HPF (0-2)
[2024-12-26 16:44] LABS: C & S Indicated? No; Casts Negative LPF (Negative); Crystals Negative HPF (Negative); Mucus Trace (Negative)
== END 2024-12-26 10:50 | disposition home or self-care (01) ==
LOC: LBN 10:49
PROVIDERS: PCP Nurse Practitioner Family; Visit Provider Nurse Practitioner Family
DX: R39.9 Unspecified symptoms and signs involving the genitourinary system (principal)
CPT/HCPCS: 81003; 81015

== ENCOUNTER 2025-01-11 18:33 | Outpatient (REF) | payer OTHER, SELFPAY ==
[2025-01-11 21:41] LABS: Bilirubin Negative (Negative); Blood Large (Negative); Clarity Cloudy (Clear); Glucose Negative (Negative); Ketones Negative (Negative); Leukocyte Esterase Small (Negative); Nitrite Negative (Negative); Specific Gravity 1.015 (1.005-1.025); Urobilinogen 0.2 mg/dL (Up to 0.2)
[2025-01-11 21:53] LABS: Bacteria Rare HPF (Negative); C & S Indicated? Yes; Casts Negative LPF (Negative); Crystals Negative HPF (Negative); Epithelial Cells Rare HPF (Negative); Mucus Negative (Negative); RBC >50 HPF (0-2)
== END 2025-01-11 18:34 | disposition home or self-care (01) ==
LOC: LBN 18:33
PROVIDERS: PCP Nurse Practitioner Family; Visit Provider Nurse Practitioner Family
DX: R39.9 Unspecified symptoms and signs involving the genitourinary system (principal)
CPT/HCPCS: 87077; 81003; 81015; 87086; 87186

== ENCOUNTER 2025-01-29 13:10 | Outpatient (CLI) | payer OTHER, SELFPAY ==
[2025-01-29 15:06] LABS: Glucose Negative (Negative)
== END 2025-01-29 13:11 | disposition home or self-care (01) ==
PROVIDERS: PCP Nurse Practitioner Family; Visit Provider Naturopath
DX: R39.9 Unspecified symptoms and signs involving the genitourinary system (principal); N39.0 Urinary tract infection, site not specified
CPT/HCPCS: 36415; 80053; 87563; 81003; 82607; 82728; 82746; 83540; 83550; 84439; 84443; 85025; 86738

== ENCOUNTER 2025-02-01 13:17 | Outpatient (CLI) | payer OTHER, SELFPAY ==
[2025-02-01 13:31] LABS: Abs Immature Grans 0.01 10^3/uL (0.0-0.06); HCT 37.7 % (36.0-46.0); HGB 12.4 g/dL (11.2-15.7); Immature Grans % 0.2 %; MCH 29.5 pg (27.0-33.0); MCHC 32.9 % (32.0-36.0); MCV 90 fL (80-95); MPV 9.8 fL (8.0-11.0); Platelet Count 278 10^3/uL (130-400); RBC 4.21 10^6/uL (3.93-5.22); RDW 12.8 % (11.7-14.6); RDW-SD 41.7 fL; WBC 5.92 10^3/uL (4.4-10.8)
[2025-02-01 14:25] LABS: Iron 78 ug/dL (50-170); Total Iron Binding Capacity 357 ug/dL (250-450); Transferrin Sat 22 % (15-50)
[2025-02-01 14:35] LABS: Ferritin 28 ng/mL (8-252); TSH 4.22 uIU/mL (0.36-3.74); Vitamin B12 678 pg/mL (193-986)
[2025-02-01 14:37] LABS: Folate > 20.0 ng/mL (8.6-20.0)
[2025-02-03 14:51] LABS: M. pneumoniae Ab, IgG Positive (Negative); M. pneumoniae Ab, IgM Negative (Negative)
[2025-02-03 16:23] LABS: Mycoplasma genitalium Result Negative (Negative); Specimen Source URINE
== END 2025-02-01 13:18 | disposition home or self-care (01) ==
LOC: LBO 13:18
PROVIDERS: PCP Nurse Practitioner Family; Visit Provider Naturopath
DX: N39.0 Urinary tract infection, site not specified (principal); R53.83 Other fatigue; R80.8 Other proteinuria
CPT/HCPCS: 36415; 87563; 82607; 82728; 82746; 83540; 83550; 84439; 84443; 85025; 86738

== ENCOUNTER 2025-02-01 15:50 | Outpatient (REF) | payer OTHER, SELFPAY ==
[2025-02-01 16:56] LABS: Creatinine,Urine 149.19 mg/dL
[2025-02-01 17:05] LABS: Creatinine,24hr Ur 1.64 g/24hr (0.60-1.80); Total Volume 1150 ml
== END 2025-02-01 15:51 | disposition home or self-care (01) ==
LOC: LBN 15:50
PROVIDERS: PCP Nurse Practitioner Family; Visit Provider Naturopath
DX: R80.8 Other proteinuria (principal); N39.0 Urinary tract infection, site not specified
CPT/HCPCS: 81050; 82570

== ENCOUNTER 2025-03-19 01:04 | Outpatient (CLI) | payer OTHER, SELFPAY ==
[2025-03-19 09:32] LABS: Hemoglobin A1C 5.7 % (<5.7)
[2025-03-19 09:33] LABS: Calculated LDL 147 mg/dL (<100); Cholesterol 221 mg/dL (<200); HDL Cholesterol 57 mg/dL (>or=50); Triglyceride 89 mg/dL (<150)
[2025-03-19 10:31] LABS: Vitamin D 25 Total 38 ng/mL (30-100)
[2025-03-19 19:10] LABS: CRP, High Sensitivity 7.27 mg/L (See Note)
[2025-03-19 19:23] LABS: T3,Free 4.2 pg/mL (2.8-5.3)
[2025-03-19 20:13] LABS: T3, Total 142 ng/dL (97-169)
[2025-03-22 01:34] LABS: Free Retinol (Vitamin A) 49.6 mcg/dL (32.5-78.0)
[2025-03-24 10:38] LABS: Apolipoprotein A1, S 156 mg/dL (>=140); Apolipoprotein B, S 104 mg/dL (See Comment); Apolipoprotein B/A 1 ratio 0.7 (See Comment)
== END 2025-03-19 01:05 | disposition home or self-care (01) ==
PROVIDERS: PCP Nurse Practitioner Family; Visit Provider Naturopath
DX: R79.89 Other specified abnormal findings of blood chemistry (principal); L73.2 Hidradenitis suppurativa; Z13.220 Encounter for screening for lipoid disorders; Z13.89 Encounter for screening for other disorder
CPT/HCPCS: 36415; 80061; 82172; 82306; 83090; 83695; 86141; 83036; 84480; 84481; 84590; 86376; 86800